=== PATIENT | female | born 1965 | race Two or more races ===

== ENCOUNTER 2023-04-23 10:33 | Emergency (ER) | payer MEDICAID, OTHER ==
[~2023-04-23] VITALS: Ht 170.2 cm; Wt 123.5 kg
[2023-04-23 11:12] VITALS: BP 109/75; PULSE 78; RESP 16; TEMP 96.6; O2SAT 96
[2023-04-23] MEDS ORDERED: IBUP-1456 PO (11:42)
== END 2023-04-23 11:54 | disposition home or self-care (01) ==
LOC: ER 10:33
DX: S82.54XA Nondisplaced fracture of medial malleolus of right tibia, initial encounter for closed fracture (principal); Z79.1 Long term (current) use of non-steroidal anti-inflammatories (NSAID); W18.39XA Other fall on same level, initial encounter; Y93.89 Activity, other specified; Y92.098 Other place in other non-institutional residence as the place of occurrence of the external cause; Y99.8 Other external cause status
CPT/HCPCS: 29515; 73610

== ENCOUNTER 2025-06-07 11:25 | Inpatient (IN) | payer MEDICAID ==
[~2025-06-07] VITALS: Ht 170.2 cm; Wt 121.6 kg
[~2025-06-07 11:25] MED LIST: IBUP-1456 PO
--- NOTE | 2025-06-07 11:52 | ECG ---
[facility] Test Date: 2025-06-07 Test Time: 11:47:47 Pat Name: EKTA GILMORE Department: ED Room: 0273T Gender: F [employer] C[employer]: GP : 1965 Requested By: ANTWON BENTON Order Number: [id number] Reading MD: Demetris Casas Measurements Intervals [place] Rate: 108 P: 55 PA: 150 QRS: -26 QRSD: 89 T: 10 QT: 349 QTc: 468 Interpretive Statements Sinus tachycardia Borderline left axis deviation Consider anterior infarct Baseline wander in lead(s) II,III,aVL,aVF,V3 Electronically Signed On 06-10-2025 17:51:41 PST by Demetris Casas Please click the below link to view image of tracing.
[2025-06-07] MEDS: SODIUM CHLORIDE 0.9% 500 ML IV ONE (12:22)
[2025-06-07 12:30] VITALS: PULSE 106; RESP 31; O2SAT 96
[2025-06-07] MEDS: CEFEPIME 2GM/50ML NS 50 ML IV ONE (12:35)
[2025-06-07] MEDS: SODIUM CHLORIDE 0.9% 1,000 ML IV ONE (12:35)
[2025-06-07 12:49] LABS: Hematocrit 39.2 % (36.0-46.0); Hemoglobin 13.4 g/dL (12.2-16.2); Mean Corpuscular Hemoglobin 28.5 pg (28.0-32.0); Mean Corpuscular Volume 83.4 fL (80.0-100.0); Nucleated Red Blood Cells % 0.1 %
--- NOTE | 2025-06-07 13:10 | DVH ---
CLINICAL INDICATION: LEFT ANKLE WOUND TECHNIQUE: 3 radiographic views of the left tibia and fibula. were obtained. Comparison: None FINDINGS/IMPRESSION: No fractures or dislocations. If osteomyelitis is of clinical concern consider MRI.
[2025-06-07 13:15] LABS: Lactic Acid w/Reflex 2.9 mmol/L (0.4-2.0)
[2025-06-07] MEDS: VANCOMYCIN 1GM/250ML KIT 250 ML IV ONE (13:23)
[2025-06-07 13:31] LABS: Albumin 3.7 g/dL (3.2-4.8); Alkaline Phosphatase 89 U/L (46-116); Anion Gap 15 (5-15); BUN/Creatinine Ratio 3.6 (10.0-20.0); Blood Urea Nitrogen 14 mg/dL (9-23); Calcium 9.5 mg/dL (8.7-10.4); Carbon Dioxide 21 mmol/L (20-31); Chloride 99 mmol/L (98-107); Potassium 4.1 mmol/L (3.5-5.1); Total Protein 7.2 g/dL (5.7-8.2)
[2025-06-07 13:32] LABS: Bilirubin, Total 0.4 mg/dL (0.2-1.0)
[2025-06-07 13:34] LABS: Alanine Aminotransferase 50 U/L (7-40); Glucose 157 mg/dL (74-106); Sodium 135 mmol/L (136-145)
--- NOTE | 2025-06-07 14:19 | ED.PDOC ---
History of Present Illness HPI Comments 60-year-old female presents to the ER with a prior medical history of diabetes and a chief complaint of nausea and vomiting. Patient reports having had nausea and vomiting, yellow emesis, dizziness, and a syncopal episode this morning. Patient does have a 2 x 1 cm diabetic wound to the left ankle. Denies any other symptoms at this time. Denies chills, fever, /D, SOB, CP. No other associated symptoms, modifiers, recent injuries or sick contacts present at this time. Chief Complaint: Nausea/Vomiting Time Seen by MD: 13:30 Primary Care Provider: MONTY Reviewed Notes: Nurses Notes, Medications, Allergies Allergies: Coded Allergies: NO KNOWN ALLERGIES (Unverified , 04/23/23) Home Meds Active Scripts Ibuprofen (Ibuprofen) 800 Mg Tab, 1 TAB PO TID, #30 TAB Prov:NEVA MONTERO 04/23/23 Information Source: Patient Mode of Arrival: Ambulatory Severity: Moderate Timing: Hours Duration: Since onset, Hours Prehospital treatment: None Past Medical History PAST MEDICAL HISTORY: DM Surgical History: Denies all surgeries WEED SPRAYER History: Denies all WEED SPRAYER Hx Family History Family History: Reviewed,noncontributory to illness, Unknown Social History Smoker: Non-Smoker Alcohol: Denies ETOH Use Drugs: Denies Drug Use Lives In: Home Constitutional: denies: chills, diaphoresis, fatigue, fever, malaise, sweats, weakness, others EENTM: denies: blurred vision, double vision, ear bleeding, ear discharge, ear drainage, ear pain, ear ringing, eye pain, eye redness, hearing loss, mouth pain, mouth swelling, nasal discharge, nose bleeding, nose congestion, nose pain, photophobia, tearing, throat pain, throat swelling, voice changes, others Respiratory: denies: cough, hemoptysis, orthopnea, SOB at rest, shortness of breath, SOB with excertion, stridor, wheezing, others Cardiovascular: denies: chest pain, dizzy spells, diaphoresis, Dyspnea on exertion, edema, irregular heart beat, left arm pain, lightheadedness, pal pitations, PND, syncope, others Gastrointestinal: reports: nausea, vomiting; denies: abdomen distended, abdominal pain, blood streaked bowels, constipated, diarrhea, dysphagia, difficulty swallowing, hematemesis, melena, poor appetite, poor fluid intake, rectal bleeding, rectal pain, others Genitourinary: denies: abnormal vagina bleeding, burning, dyspareunia, dysuria, flank pain, frequency, hematuria, incontinence, pain, , vagina discharge, urgency, others Neurological: reports: dizziness; denies: fainting, headache, left sided numbness, left sided weakness, numbness, paresthesia, pre-existing deficit, right sided numbness, right sided weakness, seizure, speech problems, tingling, tremors, weakness, others Musculoskeletal: denies: back pain, gout, joint pain, joint swelling, muscle pain, muscle stiffness, neck pain, others Integumetry: denies: bruises, change in color, change in hair/nails, dryness, laceration, lesions, lumps, rash, wounds, others Allergic/Immunocompromised: denies: Difficulty Healing, Frequent Infections, Hives, Itching, others Hematologic/Lymphatic: denies: anemia, blood clots, easy bleeding, easy bruising, swollen glands, others Endocrine: denies: excessive hunger, excessive sweating, excessive thirst, excessive urination, flushing, intolerance to cold, intolerance to heat, unexplained weight gain, unexplained weight loss, others Psychiatric: denies: anxiety, bipolar disorder, depression, hopeless, panic disorder, schizophrenia, sleepless, suicidal, others All Other Systems: Reviewed and Negative Physical Exam Exam Comments 2 x 1 cm diabetic wound to the left inguinal General Appearance: No Apparent Distress, Normal HEENT: Normal ENT Inspection, Pharynx Normal, TMs Normal Neck: Full Range of Motion, Non-Tender, Normal, Normal Inspection Respiratory: Chest Non-Tender, Lungs Clear, No Accessory Muscle Use, No Respiratory Distress, Normal Breath Sounds Cardiovascular: No Edema, No JVD, No Murmur, No Gallop, Normal Peripheral Pulses, Regular Rate/Rhythm Breast Exam: Deferred Gastrointestinal: No Organomegaly, Non Tender, No Pulsatile Mass, Normal Bowel Sounds, Soft Genitalia: Deferred Pelvic: Deferred Rectal: Deferred Extremities: No calf tenderness, Normal capillary refill, Normal inspection, Normal range of motion, Non-tender, No pedal edema Musculoskeletal : Apperance: Normal Neurologic: Alert, casework manager II-XII nml as Tested, No Motor Deficits, Normal Affect, Normal Mood, No Sensory Deficits Cerebellar Function: Normal Reflexes: Normal Skin: Dry, Normal Color, Warm Lymphatic: No Adenopathy Was a procedure done? Was a procedure done?: No EKG EKG : Pulse Rate (adult): 108 [place]: Normal Cardiac Rhythm: ST Block: None Hypertrophy: None ST: Normal Differential Dx Considerations may include: see mdm X-Ray, Labs, Meds, VS Vital Signs Date Time Temp Pulse Resp B/P (MAP) Pulse Ox O2 Delivery O2 Flow Rate FiO2 06/07/25 14:19 108 06/07/25 12:30 106 31 96 Nasal Cannula* 2 28 06/07/25 12:30 97.3 106 31 97/50 (66) 96 97.3 06/07/25 11:47 108 06/07/25 11:32 98.1 125 26 72/46 100 98.1 Lab Test 06/07/25 16:04 06/07/25 15:12 06/07/25 14:11 06/07/25 13:21 Range/Units Urine Color Yellow Yellow Urine Clarity Turbid H Clear Urine pH 5.0 5.0-9.0 Urine Specific [place] 1.015 1.001-1.035 Urine Protein Trace H Negative Urine Ketones Negative Negative Urine Blood 1+ H Negative /uL Urine Nitrite Negative Negative Urine Bilirubin Negative Negative Urine Urobilinogen Normal Negative mg/dL Urine Leukocyte Esterase 3+ Negative /uL Urine RBC 8 0 - 4 /hpf Urine Microscopic WBC 14 H 0-5 /HPF Urine Squamous Epithelial Cells Few <5 /hpf Urine Bacteria Few H None Seen /hpf Urine Mucus Few None Seen Urine Yeast (Budding) Occasional None Seen /hpf Urine Glucose 4+ H Normal mg/dL Troponin I High Sensitivity 4 < 3 L </=34 ng/L Lactic Acid Level 2.6 *H 0.4-2.0 mmol/L Test 06/07/25 12:10 Range/Units White Blood Count 8.6 4.4-10.8 10^3/uL Red Blood Count 4.70 4.0-5.20 10^6/uL Hemoglobin 13.4 12.2-16.2 g/dL Hematocrit 39.2 36.0-46.0 % Mean Corpuscular Volume 83.4 80.0-100.0 fL Mean Corpuscular Hemoglobin 28.5 28.0-32.0 pg Mean Corpuscular Hemoglobin Concent 34.2 32.0-36.0 g/dL Red Cell Distribution Width 14.2 11.8-14.3 % Platelet Count 427 140-450 10^3/uL Mean Platelet Volume 6.4 L 6.9-10.8 fL Neutrophils (%) (Auto) 65.1 37.0-80.0 % Lymphocytes (%) (Auto) 25.4 10.0-50.0 % Monocytes (%) (Auto) 7.4 0.0-12.0 % Eosinophils (%) (Auto) 1.8 0.0-7.0 % Basophils (%) (Auto) 0.3 0.0-2.0 % Neutrophils # (Auto) 5.6 1.6-8.6 10 ^3/uL Lymphocytes # (Auto) 2.2 0.4-5.4 10 ^3/uL Monocytes # (Auto) 0.6 0-1.3 10 ^3/uL Eosinophils # (Auto) 0.2 0-0.8 10 ^3/uL Basophils # (Auto) 0 0-0.2 10 ^3/uL Nucleated Red Blood Cells 0.1 % Sodium Level 135 L 136-145 mmol/L Potassium Level 4.1 3.5-5.1 mmol/L Chloride Level 99 98-107 mmol/L Carbon Dioxide Level 21 20-31 mmol/L Anion Gap 15 5-15 Blood Urea Nitrogen 14 9-23 mg/dL Creatinine 3.91 H 0.550-1.02 mg/dL Glomerular Filtration Rate Calc 13 >90 mL/min BUN/Creatinine Ratio 3.6 L 10.0-20.0 Serum Glucose 157 H 74-106 mg/dL Lactic Acid Level 2.9 *H 0.4-2.0 mmol/L Calcium Level 9.5 8.7-10.4 mg/dL Total Bilirubin 0.4 0.2-1.0 mg/dL Aspartate Amino Transferase (AST) 41 H 13-40 U/L Alanine Aminotransferase (ALT) 50 H 7-40 U/L Alkaline Phosphatase 89 46-116 U/L Troponin I High Sensitivity 4 </=34 ng/L Total Protein 7.2 5.7-8.2 g/dL Albumin 3.7 3.2-4.8 g/dL Current Medications Medications (Trade) Dose Ordered Sig/Ginger Route Start Time Stop Time Status Last Admin Sodium Chloride 500 ml @ 500 mls/hr Q1H ONCE IV 06/07/25 11:45 06/07/25 12:44 DC 06/07/25 12:22 Sodium Chloride 1,000 ml @ 1,000 mls/hr Q1H ONCE IV 06/07/25 12:30 06/07/25 13:29 DC 06/07/25 12:35 Cefepime HCl 50 ml @ 50 mls/hr ONCE ONCE IV 06/07/25 12:30 06/07/25 13:29 DC 06/07/25 12:35 Vancomycin HCl 250 ml @ 250 mls/hr ONCE ONCE IV 06/07/25 12:30 06/07/25 13:29 DC 06/07/25 13:23 Sodium Chloride 2,000 ml @ 1,000 mls/hr Q2H ONCE IV 06/07/25 16:15 06/07/25 18:14 06/07/25 16:00 Time of 1ST Reevaluation: 14:00 Reevaluation 1ST: Unchanged Patient Education/Counseling: Diagnosis, Treatment, Prognosis Family Education/Counseling: No Family Present Additional Information MEDICAL DECISION MAKING (HIGH COMPLEXITY [id number]): The patient is a 60-year-old female with a history of type 2 diabetes who presents with weakness, nausea, and vomiting. On arrival, she was hypotensive and tachycardic, raising immediate concern for sepsis and possible septic shock. She also has a left leg ulcer with surrounding erythema, drainage, and signs of infection, suspected to be the source of her sepsis. Data Reviewed / Independent Interpretation: All diagnostic studies obtained during her ED course were independently reviewed and interpreted by me: CBC: benign without leukocytosis, though normal white count does not exclude sepsis, especially in diabetic and immunocompromised patients. BMP: notable for creatinine 3.91, representing significant acute kidney injury, worsening severity of illness and increasing risk of medication accumulation and metabolic instability. Lactic acid: 2.9, consistent with lactate elevation in the setting of hypoperfusion and septic shock. Vital signs: persistent hypotension and tachycardia, requiring aggressive fluid resuscitation and close monitoring. No other acute metabolic derangements identified. Given her diabetic status and infected leg ulcer, she is at high risk for progression to worsening shock, organ dysfunction, or necrotizing soft-tissue infection. Assessment, Differential & Management: Differential diagnosis includes: Sepsis / septic shock, likely secondary to infected leg ulcer Cellulitis versus deep soft-tissue infection Acute kidney injury from sepsis/hypoperfusion Diabetic skin/soft-tissue infection Gastroenteritis or metabolic derangement contributing to N/V Occult bacteremia The patient met septic shock criteria with hypotension, elevated lactate, and end-organ dysfunction (renal injury). Management in the ED included: Aggressive IV fluid resuscitation, resulting in improved hemodynamics Broad-spectrum IV antibiotics initiated promptly Frequent reassessment of perfusion, mental status, and urine output Monitoring for need for vasopressors (not required after fluid response) Evaluation of the left leg ulcer as the most likely infectious source Consideration of necrotizing infection (low suspicion based on exam but monitored closely) Given her severity of illness, she requires inpatient admission for continued management of septic shock, IV antibiotics, serial lactate trending, close hemodynamic monitoring, and wound care evaluation. Risk / Disposition: This patient presents with a life-threatening illness involving hypotension, elevated lactate, [place], infection, and systemic inflammatory response. She requires hospital admission for continued sepsis management and potential surgical/wound evaluation. The decision to admit, high data review, and significant risk of morbidity all meet Level 5 medical decision-making criteria. CRITICAL CARE TIME 128 MINUTES A total of 128 minutes of critical care time was provided, exclusive of separately billable procedures. Critical care was medically necessary due to the immediate risk of cardiovascular collapse, multi-organ failure, and from septic shock secondary to an infected leg ulcer. Critical care activities included: Continuous monitoring of hemodynamics and perfusion Aggressive IV fluid resuscitation Initiation and oversight of broad-spectrum IV antibiotics Serial examinations of the ulcer to assess for progression or necrotizing infection Interpretation of labs including CBC, BMP, and lactate levels Frequent reassessment of mental status and vital signs Evaluation and management of acute kidney injury Coordination with nursing, admitting team, and potential wound/surgical consultants High-intensity medical decision making throughout prolonged bedside management The patient required sustained, focused critical care due to her unstable clinical state and high risk of deterioration. SEPSIS Sepsis Screen Date sepsis recognized/suspect: Jun 07, 2025 Time Sepsis recognized/suspect: 1230 Recent Procedure: No On Antibiotic Therapy: No Respiratory Rate >20: Yes Heart Rate >90: Yes Temp<36 C (96.8 F) or >38.3 C: No SBP <90 or MAP <65 mmHG: No New Acute Mental Status Change: No Is the patient on CPAP, BIPAP,: No Physician Orders Blood Culture (06/07/25 11:49) Electrocardigram (06/07/25 12:49) Electrocardigram (06/07/25 14:49) L Tib Fib Xray (06/07/25 12:31) Sodium Chloride 0.9% (06/07/25 16:15) Vital Signs Date Time Temp Pulse Resp B/P (MAP) Pulse Ox O2 Delivery O2 Flow Rate FiO2 06/07/25 14:19 108 06/07/25 12:30 106 31 96 Nasal Cannula* 2 28 06/07/25 12:30 97.3 106 31 97/50 (66) 96 97.3 06/07/25 11:47 108 06/07/25 11:32 98.1 125 26 72/46 100 98.1 Laboratory Tests Test 06/07/25 12:10 06/07/25 14:11 Lactic Acid Level 2.9 mmol/L (0.4-2.0) *H 2.6 mmol/L (0.4-2.0) *H White Blood Count 8.6 10^3/uL (4.4-10.8) Medications Medications Dose Ordered Sig/Ginger Route Start Time Stop Time Status Last Admin Dose Admin Cefepime HCl 50 ml @ 50 mls/hr ONCE ONCE IV 06/07/25 12:30 06/07/25 13:29 DC 06/07/25 12:35 Sodium Chloride 500 ml @ 500 mls/hr Q1H ONCE IV 06/07/25 11:45 06/07/25 12:44 DC 06/07/25 12:22 Sodium Chloride 1,000 ml @ 1,000 mls/hr Q1H ONCE IV 06/07/25 12:30 06/07/25 13:29 DC 06/07/25 12:35 Sodium Chloride 2,000 ml @ 1,000 mls/hr Q2H ONCE IV 06/07/25 16:15 06/07/25 18:14 06/07/25 16:00 Vancomycin HCl 250 ml @ 250 mls/hr ONCE ONCE IV 06/07/25 12:30 06/07/25 13:29 DC 06/07/25 13:23 Departure 1 Departure Time of Disposition: 16:20 Impression: Primary Impression: Septic shock Additional Impression: Cellulitis Disposition: 09 ADMITTED INPATIENT Admit to: [facility] Condition: Guarded Critical Care Note Critical Care Time?: Yes Stability Stability form required: No I personally scribed for ANTWON BENTON MD ([email or web address]) on 06/07/25 at 14:19. Electronically submitted by Indra Ramos (ANCERA). I personally scribed for ANTWON BENTON MD ([email or web address]) on 06/07/25 at 14:19. Electronically submitted by Indra Ramos (ANCERA). ANTWON BENTON MD Jun 07, 2025 14:19
[2025-06-07] MEDS: SODIUM CHLORIDE 0.9% 2,000 ML IV ONE (16:00)
[2025-06-07 16:16] LABS: Urine Budding Yeast OCCASIONAL /hpf (None Seen); Urine Protein, UAD TRACE (Negative)
[2025-06-07] MEDS ORDERED: HYDROcodone-ACET 5/325MG TAB PO PRN (18:45)
[2025-06-07] MEDS ORDERED: DEXTROSE (50%) 50ML SYRG IV PRN (18:45)
[2025-06-07] MEDS ORDERED: DOCUSATE SOD 100 MG CAP PO PRN (18:45)
[2025-06-07] MEDS ORDERED: VANCOMYCIN PER PHARMACY 0 MG IV SCH (18:45)
[2025-06-07] MEDS: SODIUM CHLORIDE 0.9% 1,000 ML IV SCH (19:00)
[2025-06-07] MEDS: MIDODRINE HCL 10 MG TAB PO ONE (19:00)
--- NOTE | 2025-06-07 21:24 | DVHHP2 ---
History of Present Illness Reason for Visit: Hypotension History of Present Illness The patient is a 60-year-old female with past medical history of diabetes mellitus, hyperlipidemia, and hypertension who presented to [facility] ED with complaint of dizziness. Patient reports that she has been experiencing dizziness associated with nausea, vomiting, near syncopal episode this morning, shortness of breaths, getting worse that prompted this visit. Patient does have a 2 x 1 cm diabetic wound to the left ankle. Patient was seen and evaluated in the ED, laboratory data shows WBC 8.6, platelets 427, sodium 135, potassium 4.1, BUN 14, creatinine 3.91, GFR 13, glucose 157, blood pressure 72/46 trending up to 119/63, heart rate 96, temperature 97.6 F, O2 saturation 94% on oxygen. Left tibia/fibula x-ray showed no fracture or dislocations, if osteomyelitis is of clinical concern consider MRI. Patient was started on IV antibiotic regimen vancomycin, please see medication orders section in the computer. On my assessment, patient denied chest pain, no headache, dizziness, currently on oxygen, no diarrhea, nausea, vomiting, fever, no chills. Patient was admitted for further evaluation and medical management. Past Medical History DM, HLD, HTN Past Surgical History Denies all surgeries Family History Reviewed, noncontributory to the management of this case. Past Social History The patient lives at home, denies smoking, alcohol or illicit drugs abuse. Review of Systems Constitutional: No: Fever, Chills, Sweats, Weakness, Malaise, Other Eyes: No: Pain, Vision change, Conjunctivae inflammation, Eyelid inflammation, Other, Redness ENT: No: Ear pain, Ear discharge, Nose pain, Nose discharge, Nose congestion, Mouth pain, Mouth swelling, Throat pain, Throat swelling, Other Respiratory: No: Cough, Dry, Shortness of breath, SOB with excertion, Wheezing, Hemoptysis, Pleuritic Pain, Sputum, Wheezing, Other Cardiovascular: No: Chest Pain, Palpitations, Orthopnea, Paroxysmal Noc. Dyspnea, Edema, Lt Headedness, Other Gastrointestinal: Nausea, Vomiting; No: Abdominal Pain, Diarrhea, Constipation, Melena, Hematochezia, Other Genitourinary: No Dysuria, No Frequency, No Incontinence, No Hematuria, No Retention, No Other Musculoskeletal: No: other, neck pain, shoulder pain, arm pain, back pain, hand pain, leg pain, foot pain Skin: No: Rash, Lesions, Jaundice, Bruising, Other Neurological: Other (Dizziness); No: Weakness, Numbness, Incoordination, Change in speech, Confusion, Seizures Allergies: Coded Allergies: NO KNOWN ALLERGIES (Unverified , 04/23/23) Medications Current Medications Medications Dose Ordered Sig/Ginger Route Start Time Stop Time Status Last Admin Dose Admin Ceftriaxone Sodium 50 ml @ 100 mls/hr DAILY@09 IV 06/08/25 09:00 Vancomycin HCl 0 ml @ 0 mls/hr PER PHARMACY IV 06/07/25 18:45 UNV Diagnostic Test (Pha) 1 strip Q6HR 06/08/25 00:00 Insulin Human Regular Q6HR SC 06/08/25 00:00 Dextrose 50 ml UD PRN IV 06/07/25 18:45 Sodium Chloride 1,000 ml @ 60 mls/hr [id number] IV 06/07/25 18:45 06/07/25 19:00 60 MLS/HR Acetaminophen/ Hydrocodone Bitart 1 tab Q4HP PRN PO 06/07/25 18:45 Ondansetron HCl 4 mg Q4HP PRN IV 06/07/25 18:45 Docusate Sodium 100 mg BIDPRN PRN PO 06/07/25 18:45 Acetaminophen 650 mg Q6HP PRN PO 06/07/25 18:45 Midodrine 10 mg TID@0600,1200,1800 PO 06/08/25 06:00 Exam Vital Signs Vital Signs Date Time Temp Pulse Resp B/P (MAP) Pulse Ox O2 Delivery O2 Flow Rate FiO2 06/07/25 19:30 98.8 104 22 108/59 (75) 95 98.8 06/07/25 19:30 Room Air* 0 21 General Appearance: Alert, Oriented X3, Cooperative, No acute distress HEENT: Atraumatic, PERRLA, EOMI, Mucous membr. moist/pink Respiratory: Normal air movement Cardiovascular: Regular rate, Normal S1, Normal S2, No murmurs Abdominal: Normal bowel sounds, Soft, No tenderness, No hepatospenomegaly, No masses Extremities: No clubbing, No cyanosis, No edema, Normal pulses, No tenderness/swelling Skin: No rashes, No significant lesion Neuro: Normal speech, Normal tone, Sensation intact, Cranial nerves 3-12 NL, Reflexes 2+, Other (Generalized weakness) Psych/Mental Status: Mental status NL, Mood NL Labs/Xrays Labs Test 06/07/25 16:04 06/07/25 15:12 06/07/25 14:11 06/07/25 12:10 Range/Units Urine Color Yellow Yellow Urine Clarity Turbid H Clear Urine pH 5.0 5.0-9.0 Urine Specific [place] 1.015 1.001-1.035 Urine Protein Trace H Negative Urine Ketones Negative Negative Urine Blood 1+ H Negative /uL Urine Nitrite Negative Negative Urine Bilirubin Negative Negative Urine Urobilinogen Normal Negative mg/dL Urine Leukocyte Esterase 3+ Negative /uL Urine RBC 8 0 - 4 /hpf Urine Microscopic WBC 14 H 0-5 /HPF Urine Squamous Epithelial Cells Few <5 /hpf Urine Bacteria Few H None Seen /hpf Urine Mucus Few None Seen Urine Yeast (Budding) Occasional None Seen /hpf Urine Glucose 4+ H Normal mg/dL Troponin I High Sensitivity 4 </=34 ng/L Lactic Acid Level 2.6 *H 0.4-2.0 mmol/L White Blood Count 8.6 4.4-10.8 10^3/uL Red Blood Count 4.70 4.0-5.20 10^6/uL Hemoglobin 13.4 12.2-16.2 g/dL Hematocrit 39.2 36.0-46.0 % Mean Corpuscular Volume 83.4 80.0-100.0 fL Mean Corpuscular Hemoglobin 28.5 28.0-32.0 pg Mean Corpuscular Hemoglobin Concent 34.2 32.0-36.0 g/dL Red Cell Distribution Width 14.2 11.8-14.3 % Platelet Count 427 140-450 10^3/uL Mean Platelet Volume 6.4 L 6.9-10.8 fL Neutrophils (%) (Auto) 65.1 37.0-80.0 % Lymphocytes (%) (Auto) 25.4 10.0-50.0 % Monocytes (%) (Auto) 7.4 0.0-12.0 % Eosinophils (%) (Auto) 1.8 0.0-7.0 % Basophils (%) (Auto) 0.3 0.0-2.0 % Neutrophils # (Auto) 5.6 1.6-8.6 10 ^3/uL Lymphocytes # (Auto) 2.2 0.4-5.4 10 ^3/uL Monocytes # (Auto) 0.6 0-1.3 10 ^3/uL Eosinophils # (Auto) 0.2 0-0.8 10 ^3/uL Basophils # (Auto) 0 0-0.2 10 ^3/uL Nucleated Red Blood Cells 0.1 % Sodium Level 135 L 136-145 mmol/L Potassium Level 4.1 3.5-5.1 mmol/L Chloride Level 99 98-107 mmol/L Carbon Dioxide Level 21 20-31 mmol/L Anion Gap 15 5-15 Blood Urea Nitrogen 14 9-23 mg/dL Creatinine 3.91 H 0.550-1.02 mg/dL Glomerular Filtration Rate Calc 13 >90 mL/min BUN/Creatinine Ratio 3.6 L 10.0-20.0 Serum Glucose 157 H 74-106 mg/dL Calcium Level 9.5 8.7-10.4 mg/dL Total Bilirubin 0.4 0.2-1.0 mg/dL Aspartate Amino Transferase (AST) 41 H 13-40 U/L Alanine Aminotransferase (ALT) 50 H 7-40 U/L Alkaline Phosphatase 89 46-116 U/L Total Protein 7.2 5.7-8.2 g/dL Albumin 3.7 3.2-4.8 g/dL PATIENT: EKTA GILMORE ACCT: [id number] UNIT: [id number] : 1965 LOC: ER ROOM / BED: / AGE / SEX: 60 / F ADM STATUS: REG ER SERVICE 1231 ORDERING PHYSICIAN: ANTWON BENTON MD PROCEDURE(s): LTBFB - L TIB FIB XRAY REASON: LEFT ANKLE WOUND ORDER NUMBER(s): [id number], ACCESSION NUMBER(s): [id number] CLINICAL INDICATION: LEFT ANKLE WOUND TECHNIQUE: 3 radiographic views of the left tibia and fibula. were obtained. Comparison: None FINDINGS/IMPRESSION: No fractures or dislocations. If osteomyelitis is of clinical concern consider MRI. SEPSIS Sepsis Screen Date sepsis recognized/suspect: Jun 07, 2025 Time Sepsis recognized/suspect: 1929 Recent Procedure: No On Antibiotic Therapy: Yes Respiratory Rate >20: No Heart Rate >90: No Temp<36 C (96.8 F) or >38.3 C: No SBP <90 or MAP <65 mmHG: No New Acute Mental Status Change: No Is the patient on CPAP, BIPAP,: No Physician Orders Ceftriaxone 1gm/50ml (Rocephin) (06/08/25 09:00) Vancomycin Per Pharmacy (06/07/25 18:45) *[facility] (06/07/25 18:35) Glucose Blood (Accu-Chek Comfort Curve T (06/08/25 00:00) Insulin R (Human) (Insulin R) (06/08/25 00:00) Dextrose 50% Syringe (06/07/25 18:45) Allergies (06/07/25 18:35) Code Status (06/07/25 18:35) Sodium Chloride 0.9% (06/07/25 18:45) Oxygen Per Hour (06/07/25 18:35) Hydrocodone-Acet 5/325mg Tab (Boley 5/32 (06/07/25 18:45) Ondansetron Hcl (Zofran) (06/07/25 18:45) Docusate Sodium Capsule (Colace Capsule) (06/07/25 18:45) Complete Blood Count (06/08/25 04:00) Comprehensive Metabolic Panel (06/08/25 04:00) Condition: Serious (06/07/25 18:35) Acetaminophen Tablet (Tylenol Tablet) (06/07/25 18:45) Clear Liq Diet (06/08/25 Breakfast) Bedrest With Bathroom Privileg (06/07/25 18:35) Maintain Bed Rest (06/07/25 18:35) Sequential Compression Device (06/07/25 ) Midodrine Tablet (Proamatine Tablet) (06/08/25 06:00) Urine Bacterial Culture (06/07/25 18:40) Vancomycin,Random (06/08/25 04:00) Admit (06/07/25 21:22) Nitroglycerin Sublingual (Ntrostat Subli (06/07/25 21:30) Morphine Sulfate Injection (06/07/25 21:30) Stat Ekg For Chest Pain (06/07/25 21:22) Notify Md Of Changes From Base (06/07/25 21:22) Director Of Labor And Delivery For 24 Hours (06/07/25 21:22) Emergency Dysrhythmia Protocol (06/07/25 21:22) Rhythm Strips Once Every Shift (06/07/25 21:22) Oxygen By Nasal Cannula (06/07/25 21:22) Vital Signs Date Time Temp Pulse Resp B/P (MAP) Pulse Ox O2 Delivery O2 Flow Rate FiO2 06/07/25 19:30 98.8 104 22 108/59 (75) 95 98.8 06/07/25 19:30 Room Air* 0 21 06/07/25 18:00 98.0 98 20 110/57 (74) 94 98.0 06/07/25 16:00 97.5 113 20 97/48 (64) 94 97.5 06/07/25 14:19 108 06/07/25 14:00 97.4 96 30 100/61 (74) 91 97.4 Laboratory Tests Test 06/07/25 12:10 06/07/25 14:11 Lactic Acid Level 2.9 mmol/L (0.4-2.0) *H 2.6 mmol/L (0.4-2.0) *H White Blood Count 8.6 10^3/uL (4.4-10.8) Medications Medications Dose Ordered Sig/Ginger Route Start Time Stop Time Status Last Admin Dose Admin Cefepime HCl 50 ml @ 50 mls/hr ONCE ONCE IV 06/07/25 12:30 06/07/25 13:29 DC 06/07/25 12:35 50 MLS/HR Midodrine 10 mg ONCE ONCE PO 06/07/25 18:45 06/07/25 18:54 DC 06/07/25 19:00 10 MG Sodium Chloride 500 ml @ 500 mls/hr Q1H ONCE IV 06/07/25 11:45 06/07/25 12:44 DC 06/07/25 12:22 500 MLS/HR Sodium Chloride 1,000 ml @ 60 mls/hr [id number] IV 06/07/25 18:45 06/07/25 19:00 60 MLS/HR Sodium Chloride 1,000 ml @ 1,000 mls/hr Q1H ONCE IV 06/07/25 12:30 06/07/25 13:29 DC 06/07/25 12:35 1,000 MLS/HR Sodium Chloride 2,000 ml @ 1,000 mls/hr Q2H ONCE IV 06/07/25 16:15 06/07/25 18:14 DC 06/07/25 16:00 1,000 MLS/HR Vancomycin HCl 250 ml @ 250 mls/hr ONCE ONCE IV 06/07/25 12:30 06/07/25 13:29 DC 06/07/25 13:23 250 MLS/HR Assessment/Plan Assessment/Plan Hypotension Urinary tract infection Acute renal failure Elevated liver enzymes Intractable nausea and vomiting Diabetes mellitus with hyperglycemia Ulcer of left foot due to type 2 diabetes mellitus Generalized weakness Plan 1. Admit to telemetry unit 2. Breathing treatment 3. Pain control management 4. IV antibiotic management 5. Management of fluids and electrolytes 6. Consultation for Nephrology/wound care 7. Diagnostic test left tibia/fibula x-ray 8. DVT prophylaxis-on aspirin 9. Repeat labs CBC, CMP in a.m. 10. Home medication reviewed and reconciled 11. Continue with current medical management 12. Treatment plan discussed with patient and RN. Patient verbalized understanding. Plan discussed with: Patient, Other (RN) My Orders Orders - VAUGHN RIBEIRO DNP Procedure Category Date Status Time Ceftriaxone 1gm/50ml PHA 06/08/25 In Process (Rocephin) 09:00 Vancomycin Per PHA 06/07/25 Pending Pharmacy 18:45 *[facility] CONS 06/07/25 Transmitted -[place] 18:35 Glucose Blood PHA 06/08/25 In Process (Accu-Chek Comfort 00:00 Insulin R (Human) PHA 06/08/25 In Process (Insulin R) 00:00 Dextrose 50% Syringe PHA 06/07/25 In Process 18:45 Allergies FREDERIC 06/07/25 In Process 18:35 Code Status CODE 06/07/25 Transmitted 18:35 Sodium Chloride 0.9% PHA 06/07/25 In Process 18:45 Oxygen Per Hour RT 06/07/25 Transmitted 18:35 Hydrocodone-Acet PHA 06/07/25 In Process 5/325mg Tab (Boley 18:45 Ondansetron Hcl PHA 06/07/25 In Process (Zofran) 18:45 Docusate Sodium PHA 06/07/25 In Process Capsule (Colace 18:45 Complete Blood Count LAB 06/08/25 Verified 04:00 Comprehensive LAB 06/08/25 Verified Metabolic Panel 04:00 Condition: Serious FREDERIC 06/07/25 In Process 18:35 Acetaminophen Tablet PHA 06/07/25 In Process (Tylenol Tablet) 18:45 Clear Liq Diet DIET 06/08/25 Transmitted Breakfast Bedrest With Bathroom [facility] 06/07/25 In Process Privileg 18:35 Maintain Bed Rest [facility] 06/07/25 In Process 18:35 Sequential [facility]ERIC 06/07/25 In Process Compression Device Midodrine Tablet [facility] 06/08/25 In Process (Proamatine Tablet) 06:00 Urine Bacterial BEN 06/07/25 In Process Culture 18:40 Vancomycin,Random LAB 06/08/25 Verified 04:00 Admit ADMIT 06/07/25 Verified 21:22 Nitroglycerin [facility] 06/07/25 Verified Sublingual (Ntrostat 21:30 Morphine Sulfate [facility] 06/07/25 Verified Injection 21:30 Stat Ekg For Chest [facility] 06/07/25 Verified Pain 21:22 Notify Md Of Changes [facility] 06/07/25 Verified From Base 21:22 Director Of Labor And Delivery For [facility] 06/07/25 Verified 24 Hours 21:22 Emergency Dysrhythmia [facility] 06/07/25 Verified Protocol 21:22 Rhythm Strips Once [facility] 06/07/25 Verified Every Shift 21:22 Oxygen By Nasal RT 06/07/25 Verified Cannula 21:22 Problem List: (1) Hypotension (2) Urinary tract infection (3) Acute renal failure (4) Elevated liver enzymes (5) Intractable nausea and vomiting (6) Diabetes mellitus with hyperglycemia (7) Ulcer of left foot due to type 2 diabetes mellitus (8) Generalized weakness Date of Service: Jun 07, 2025 Billing Provider: VAUGHN RIBEIRO DNP Common Visit Codes: [id number] INP/OBS CARE (HIGH) VAUGHN RIBEIRO DNP Jun 07, 2025 21:24
[2025-06-07] MEDS ORDERED: MORPHINE SULFATE INJ 2 MG/ml SYRG IV PRN (21:30)
[2025-06-07] MEDS ORDERED: NITROGLYCERIN 0.4 MG SL TAB SL PRN (21:30)
[2025-06-08] VITALS (8 sets, daily range): BP systolic 95–129; BP diastolic 61–81; PULSE 83–98; RESP 18–20; TEMP 97.6–98.5; O2SAT 93–99
[2025-06-08] MEDS: InsuLIN REG 1unit/0.01ml Soln (100units/ml) SC SCH
[2025-06-08] MEDS: ACCU-CHEK COMFORT CURVE STRIP VI SCH
[2025-06-08] MEDS: ONDANSETRON HCL 4 MG/2 ML VIAL IV PRN (00:29)
[2025-06-08] MEDS ORDERED: METF-929 PO (02:37)
[2025-06-08] MEDS: MIDODRINE HCL 10 MG TAB PO SCH (05:49)
[2025-06-08 06:22] LABS: Hematocrit 33.9 % (36.0-46.0); Hemoglobin 11.6 g/dL (12.2-16.2); Mean Corpuscular Hemoglobin 28.2 pg (28.0-32.0); Mean Corpuscular Volume 82.7 fL (80.0-100.0); Nucleated Red Blood Cells % 0.1 %
[2025-06-08 06:44] LABS: Albumin 3.4 g/dL (3.2-4.8); Alkaline Phosphatase 74 U/L (46-116); Anion Gap 12 (5-15); BUN/Creatinine Ratio 3.1 (10.0-20.0); Calcium 8.8 mg/dL (8.7-10.4); Carbon Dioxide 20 mmol/L (20-31); Chloride 104 mmol/L (98-107); Glucose 103 mg/dL (74-106); Potassium 3.9 mmol/L (3.5-5.1); Sodium 136 mmol/L (136-145); Total Protein 6.6 g/dL (5.7-8.2)
[2025-06-08 06:45] LABS: Bilirubin, Total 0.4 mg/dL (0.2-1.0)
[2025-06-08 06:46] LABS: Alanine Aminotransferase 49 U/L (7-40); Blood Urea Nitrogen 7 mg/dL (9-23)
--- NOTE | 2025-06-08 13:05 | DVHPN2 ---
Subjective Seen in bed with no pain Reviewed: H&P Changes from previous H/P or p: No Changes Eyes: No Pain, No Vision change, No Conjunctivae inflammation, No Eyelid inflammation, No Other, No Redness ENT: No Ear pain, No Ear discharge, No Nose pain, No Nose discharge, No Nose congestion, No Mouth pain, No Mouth swelling, No Throat pain, No Throat swelling, No Other Cardiovascular: No Chest Pain, No Palpitations, No Orthopnea, No Paroxysmal Noc. Dyspnea, No Edema, No Lt Headedness, No Other Respiratory: No Cough, No Dry, No Shortness of breath, No SOB with excertion, No Wheezing, No Hemoptysis, No Pleuritic Pain, No Sputum, No Other Gastrointestinal: Nausea, Vomiting; No Abdominal Pain, No Diarrhea, No Constipation, No Melena, No Hematochezia, No Other Genitourinary: No Dysuria, No Frequency, No Incontinence, No Hematuria, No Retention, No Other Musculoskeletal: No other, No neck pain, No shoulder pain, No arm pain, No back pain, No hand pain, No leg pain, No foot pain Skin: No Rash, No Lesions, No Jaundice, No Bruising, No Other Objective Vitals Vital Signs Date Time Temp Pulse Resp B/P (MAP) Pulse Ox O2 Delivery O2 Flow Rate FiO2 06/08/25 09:00 97.6 87 20 129/81 (97) 93 97.6 06/08/25 08:00 Room Air* 0 21 Intake/Output Intake and Output 06/08/25 07:00 Intake Total 3800 ml Balance 3800 ml IV Total 3800 ml # Voids 4 General Appearance: Alert, Oriented X3 HEENT: Atraumatic Lungs: Clear to auscultation Cardiovascular: Regular rate, Normal S1, Normal S2 Abdomen: Normal bowel sounds Medications Current Medications Medications Dose Ordered Sig/Ginger Route Start Time Stop Time Status Last Admin Dose Admin Ceftriaxone Sodium 50 ml @ 100 mls/hr DAILY@09 IV 06/08/25 09:00 06/08/25 09:32 100 MLS/HR Vancomycin HCl 0 ml @ 0 mls/hr PER PHARMACY IV 06/07/25 18:45 Diagnostic Test (Pha) 1 strip Q6HR 06/08/25 00:00 06/08/25 12:30 1 STRIP Insulin Human Regular Q6HR SC 06/08/25 00:00 06/08/25 12:30 2 UNITS Dextrose 50 ml UD PRN IV 06/07/25 18:45 Sodium Chloride 1,000 ml @ 60 mls/hr [id number] IV 06/07/25 18:45 06/08/25 11:28 60 MLS/HR Acetaminophen/ Hydrocodone Bitart 1 tab Q4HP PRN PO 06/07/25 18:45 Ondansetron HCl 4 mg Q4HP PRN IV 06/07/25 18:45 06/08/25 09:33 4 MG Docusate Sodium 100 mg BIDPRN PRN PO 06/07/25 18:45 Acetaminophen 650 mg Q6HP PRN PO 06/07/25 18:45 Midodrine 10 mg TID@0600,1200,1800 PO 06/08/25 06:00 06/08/25 05:49 10 MG Nitroglycerin 0.4 mg Q5MINP PRN SL 06/07/25 21:30 Morphine Sulfate 2 mg Q30M PRN IV 06/07/25 21:30 Aspirin 81 mg DAILY PO 06/08/25 10:00 06/08/25 09:32 81 MG Laboratory Results Laboratory Tests 06/08/25 04:50 Chemistry Test 06/08/25 04:50 Albumin 3.4 g/dL (3.2-4.8) Calcium Level 8.8 mg/dL (8.7-10.4) Total Protein 6.6 g/dL (5.7-8.2) LFT Test 06/08/25 04:50 Alanine Aminotransferase (ALT) 49 U/L (7-40) H Alkaline Phosphatase 74 U/L (46-116) Aspartate Amino Transferase (AST) 68 U/L (13-40) H Total Bilirubin 0.4 mg/dL (0.2-1.0) Urinalysis Test 06/07/25 16:04 Urine Color Yellow (Yellow) Urine Clarity Turbid (Clear) H Urine pH 5.0 (5.0-9.0) Urine Specific [place] 1.015 (1.001-1.035) Urine Protein Trace (Negative) H Urine Ketones Negative (Negative) Urine Blood 1+ /uL (Negative) H Urine Nitrite Negative (Negative) Urine Bilirubin Negative (Negative) Urine Urobilinogen Normal mg/dL (Negative) Urine Leukocyte Esterase 3+ /uL (Negative) Urine RBC 8 /hpf (0 - 4) Urine Microscopic WBC 14 /HPF (0-5) H Urine Squamous Epithelial Cells Few /hpf (<5) Urine Bacteria Few /hpf (None Seen) H Urine Mucus Few (None Seen) Urine Yeast (Budding) Occasional /hpf (None Urine Glucose 4+ mg/dL (Normal) H Microbiology Microbiology Date/Time Source Procedure Growth Status 06/07/25 16:04 Voided Urine Urine Culture - Preliminary Resulted 06/07/25 12:16 Blood Blood Culture - Preliminary NO GROWTH AFTER 24 HOURS OF INCUBATION. Resulted Assessment/Plan Assessment/Plan Hypotension Urinary tract infection Acute renal failure due to vasomotor nephropathy Elevated liver enzymes Intractable nausea and vomiting Diabetes mellitus with hyperglycemia Ulcer of left foot due to type 2 diabetes mellitus Generalized weakness IVF Monitor BMP daily IV abx Monitor blood cx Creatinine 3.9>2.4 Plan discussed with: Patient Date of Service: Jun 08, 2025 Billing Provider: LUCHO SEALS MD Common Visit Codes: [id number] INP/OBS CARE(HIGH) LUCHO SEALS MD Jun 08, 2025 13:05
[2025-06-08] MEDS: VANCOMYCIN 1GM/250ML KIT 250 ML IV ONE (14:04)
--- NOTE | 2025-06-08 19:50 | DVHINCON2 ---
Date of service: Jun 08, 2025 Reason for Consultation fidel History of Present Illness 60 years old female with past medical history of diabetes, dyslipidemia, hypertension who presented with chief complaints of dizziness associated with nausea vomiting and near syncope she denies having Chronic kidney disease she also is morbidly obese On arrival her blood pressure is found to be 72 / 46 Past Medical History As per HPI Past Surgical History As per HPI Allergies: Coded Allergies: NO KNOWN ALLERGIES (Unverified , 04/23/23) Home Meds Reported Medications Metformin HCl (Metformin Hydrochloride) 1,000 Mg Tab, 1000 MG PO BID, TAB 06/08/25 Current Medications Current Medications Medications (Trade) Dose Ordered Sig/Ginger Route PRN Reason Start Time Stop Time Status Last Admin Ceftriaxone Sodium 50 ml @ 100 mls/hr DAILY@09 IV 06/08/25 09:00 06/08/25 09:32 Diagnostic Test (Pha) (Accu-Chek Comfort Curve T) 1 strip Q6HR 06/08/25 00:00 06/08/25 17:10 Insulin Human Regular (InsuLIN R) Q6HR SC 06/08/25 00:00 06/08/25 12:30 Midodrine (Proamatine Tablet) 10 mg TID@0600,1200,1800 PO 06/08/25 06:00 06/08/25 05:49 Nitroglycerin (Ntrostat Sublingual) 0.4 mg Q5MINP PRN SL FOR CHEST PAIN 06/07/25 21:30 Morphine Sulfate 2 mg Q30M PRN IV FOR CHEST PAIN 06/07/25 21:30 Aspirin 81 mg DAILY PO 06/08/25 10:00 06/08/25 09:32 Family History: Patient reports no known family medical history. Review of Systems As per HPI H&P Exam Vital Signs/I&O Vital Sign Date Time Temp Pulse Resp B/P (MAP) Pulse Ox O2 Delivery O2 Flow Rate FiO2 06/08/25 17:00 98.3 89 20 126/76 (93) 99 98.3 06/08/25 08:00 Room Air* 0 21 Intake and Output 06/07/25 06/08/25 19:00 07:00 Intake Total 3800 ml Balance 3800 ml IV Total 3800 ml # Voids 4 Physical Exam General-not in any distress HEENT-normocephalic, no icterus, no pallor, neck supple Respiratory-fair air entry bilateral, no rhonchi, no wheeze [id number] heard, no murmurs appreciated Abdominal-soft, nontender, nondistended Musculoskeletal-no pedal edema, no calf tenderness Genitourinary-deferred Neuro-awake alert oriented x3, Psychiatric-not agitated, cooperative, Labs/Diagnostic Data Labs/Diagnostic Data Laboratory Tests Test 06/08/25 17:07 06/08/25 12:09 06/08/25 05:49 06/08/25 04:50 Range/Units POC Glucose 126 H 159 H 113 H 70-106 mg/dl White Blood Count 6.3 # 4.4-10.8 10^3/uL Red Blood Count 4.10 4.0-5.20 10^6/uL Hemoglobin 11.6 L 12.2-16.2 g/dL Hematocrit 33.9 #L 36.0-46.0 % Mean Corpuscular Volume 82.7 80.0-100.0 fL Mean Corpuscular Hemoglobin 28.2 28.0-32.0 pg Mean Corpuscular Hemoglobin Concent 34.1 32.0-36.0 g/dL Red Cell Distribution Width 14.3 11.8-14.3 % Platelet Count 364 140-450 10^3/uL Mean Platelet Volume 6.7 L 6.9-10.8 fL Neutrophils (%) (Auto) 57.1 37.0-80.0 % Lymphocytes (%) (Auto) 30.0 10.0-50.0 % Monocytes (%) (Auto) 9.6 0.0-12.0 % Eosinophils (%) (Auto) 3.0 0.0-7.0 % Basophils (%) (Auto) 0.3 0.0-2.0 % Neutrophils # (Auto) 3.6 1.6-8.6 10 ^3/uL Lymphocytes # (Auto) 1.9 0.4-5.4 10 ^3/uL Monocytes # (Auto) 0.6 0-1.3 10 ^3/uL Eosinophils # (Auto) 0.2 0-0.8 10 ^3/uL Basophils # (Auto) 0 0-0.2 10 ^3/uL Nucleated Red Blood Cells 0.1 % Sodium Level 136 136-145 mmol/L Potassium Level 3.9 3.5-5.1 mmol/L Chloride Level 104 98-107 mmol/L Carbon Dioxide Level 20 20-31 mmol/L Anion Gap 12 5-15 Blood Urea Nitrogen 7 L 9-23 mg/dL Creatinine 2.24 #H 0.550-1.02 mg/dL Glomerular Filtration Rate Calc 25 >90 mL/min BUN/Creatinine Ratio 3.1 L 10.0-20.0 Serum Glucose 103 74-106 mg/dL Calcium Level 8.8 8.7-10.4 mg/dL Total Bilirubin 0.4 0.2-1.0 mg/dL Aspartate Amino Transferase (AST) 68 H 13-40 U/L Alanine Aminotransferase (ALT) 49 H 7-40 U/L Alkaline Phosphatase 74 46-116 U/L Total Protein 6.6 5.7-8.2 g/dL Albumin 3.4 3.2-4.8 g/dL Random Vancomycin Level 9.2 5-10 ug/mL Test 06/08/25 00:27 06/07/25 16:04 06/07/25 15:12 06/07/25 14:11 Range/Units POC Glucose 133 H 70-106 mg/dl Urine Color Yellow Yellow Urine Clarity Turbid H Clear Urine pH 5.0 5.0-9.0 Urine Specific [place] 1.015 1.001-1.035 Urine Protein Trace H Negative Urine Ketones Negative Negative Urine Blood 1+ H Negative /uL Urine Nitrite Negative Negative Urine Bilirubin Negative Negative Urine Urobilinogen Normal Negative mg/dL Urine Leukocyte Esterase 3+ Negative /uL Urine RBC 8 0 - 4 /hpf Urine Microscopic WBC 14 H 0-5 /HPF Urine Squamous Epithelial Cells Few <5 /hpf Urine Bacteria Few H None Seen /hpf Urine Mucus Few None Seen Urine Yeast (Budding) Occasional None Seen /hpf Urine Glucose 4+ H Normal mg/dL Troponin I High Sensitivity 4 </=34 ng/L Lactic Acid Level 2.6 *H 0.4-2.0 mmol/L Test 06/07/25 13:21 06/07/25 12:10 Range/Units Troponin I High Sensitivity < 3 L 4 </=34 ng/L White Blood Count 8.6 4.4-10.8 10^3/uL Red Blood Count 4.70 4.0-5.20 10^6/uL Hemoglobin 13.4 12.2-16.2 g/dL Hematocrit 39.2 36.0-46.0 % Mean Corpuscular Volume 83.4 80.0-100.0 fL Mean Corpuscular Hemoglobin 28.5 28.0-32.0 pg Mean Corpuscular Hemoglobin Concent 34.2 32.0-36.0 g/dL Red Cell Distribution Width 14.2 11.8-14.3 % Platelet Count 427 140-450 10^3/uL Mean Platelet Volume 6.4 L 6.9-10.8 fL Neutrophils (%) (Auto) 65.1 37.0-80.0 % Lymphocytes (%) (Auto) 25.4 10.0-50.0 % Monocytes (%) (Auto) 7.4 0.0-12.0 % Eosinophils (%) (Auto) 1.8 0.0-7.0 % Basophils (%) (Auto) 0.3 0.0-2.0 % Neutrophils # (Auto) 5.6 1.6-8.6 10 ^3/uL Lymphocytes # (Auto) 2.2 0.4-5.4 10 ^3/uL Monocytes # (Auto) 0.6 0-1.3 10 ^3/uL Eosinophils # (Auto) 0.2 0-0.8 10 ^3/uL Basophils # (Auto) 0 0-0.2 10 ^3/uL Nucleated Red Blood Cells 0.1 % Sodium Level 135 L 136-145 mmol/L Potassium Level 4.1 3.5-5.1 mmol/L Chloride Level 99 98-107 mmol/L Carbon Dioxide Level 21 20-31 mmol/L Anion Gap 15 5-15 Blood Urea Nitrogen 14 9-23 mg/dL Creatinine 3.91 H 0.550-1.02 mg/dL Glomerular Filtration Rate Calc 13 >90 mL/min BUN/Creatinine Ratio 3.6 L 10.0-20.0 Serum Glucose 157 H 74-106 mg/dL Lactic Acid Level 2.9 *H 0.4-2.0 mmol/L Calcium Level 9.5 8.7-10.4 mg/dL Total Bilirubin 0.4 0.2-1.0 mg/dL Aspartate Amino Transferase (AST) 41 H 13-40 U/L Alanine Aminotransferase (ALT) 50 H 7-40 U/L Alkaline Phosphatase 89 46-116 U/L Total Protein 7.2 5.7-8.2 g/dL Albumin 3.7 3.2-4.8 g/dL Assessment Acute kidney injury secondary to hypotension Diabetes Hypertension Morbid obesity UTI Recommendations Increase NS IV 100 cc/hour Renal function improved since admission Antibiotics U PCR Urine lytes Kidney ultrasound Plan discussed with: Patient EDUARDO GASTELUM MD Jun 08, 2025 19:50
[2025-06-08] MEDS: ACETAMINOPHEN 325 MG TAB PO PRN (20:29)
[2025-06-08] MEDS: SODIUM CHLORIDE 0.9% 1,000 ML IV SCH (20:31)
--- NOTE | 2025-06-08 21:03 | DVH ---
INDICATION: fidel TECHNIQUE: Multiple real-time sonographic images of the kidneys and bladder were obtained. COMPARISON: None FINDINGS: The right kidney measures 11.4 cm in length, which is normal in size. There is normal echogenicity of the right kidney. No hydronephrosis. The left kidney measures 12.6 cm in length, which is normal in size. There is normal echogenicity of the left kidney. There is mild left pyelocaliectasis. No large intraluminal masses are seen in the bladder. Prior to voiding the bladder volume measures volume 117.9 cc. Wall of the bladder measures 4.3 mm No postvoid bladder volume received. IMPRESSION: 1. Normal sonographic appearance of the kidneys. No hydronephrosis. 2. Questionable mild left pyelocaliectasis.
[2025-06-09] VITALS (8 sets, daily range): BP systolic 111–145; BP diastolic 61–92; PULSE 76–90; RESP 16–20; TEMP 97–98.6; O2SAT 95–99
[2025-06-09 01:29] LABS: Protein, Urine 13.4 mg/dL (1-14)
[2025-06-09 07:37] LABS: Hematocrit 33.4 % (36.0-46.0); Hemoglobin 11.4 g/dL (12.2-16.2); Mean Corpuscular Hemoglobin 28.5 pg (28.0-32.0); Mean Corpuscular Volume 83.7 fL (80.0-100.0); Nucleated Red Blood Cells % 0.0 %
[2025-06-09] MEDS: VANCOMYCIN 1GM/250ML KIT 250 ML IV SCH (14:51)
--- NOTE | 2025-06-09 15:58 | DVHPN2 ---
Progress Note Date Seen: Jun 09, 2025 Medical Necessity Reason Pt with a Central, PICC or Fol: No Subjective Patient reports: Feels better Objective vital signs Vital Sign Date Time Temp Pulse Resp B/P (MAP) Pulse Ox O2 Delivery O2 Flow Rate FiO2 06/09/25 13:00 98.3 76 16 145/87 (106) 95 98.3 06/09/25 08:00 Nasal Cannula* 2 28 Total Intake and Output 06/08/25 06/08/25 06/09/25 15:00 23:00 07:00 Intake Total 236 ml 2094 ml 2450 ml Output Total 2000 ml 1550 ml Balance 236 ml 94 ml 900 ml medications Current Medications Medications Dose Ordered Sig/Ginger Route Start Time Stop Time Status Last Admin Dose Admin Ceftriaxone Sodium 50 ml @ 100 mls/hr DAILY@09 IV 06/08/25 09:00 06/09/25 08:56 100 MLS/HR Vancomycin HCl 0 ml @ 0 mls/hr PER PHARMACY IV 06/07/25 18:45 Diagnostic Test (Pha) 1 strip Q6HR 06/08/25 00:00 06/09/25 11:35 1 STRIP Insulin Human Regular Q6HR SC 06/08/25 00:00 06/09/25 11:45 2 UNITS Dextrose 50 ml UD PRN IV 06/07/25 18:45 Acetaminophen/ Hydrocodone Bitart 1 tab Q4HP PRN PO 06/07/25 18:45 Ondansetron HCl 4 mg Q4HP PRN IV 06/07/25 18:45 06/08/25 09:33 4 MG Docusate Sodium 100 mg BIDPRN PRN PO 06/07/25 18:45 Acetaminophen 650 mg Q6HP PRN PO 06/07/25 18:45 06/09/25 05:36 650 MG Midodrine 10 mg TID@0600,1200,1800 PO 06/08/25 06:00 06/08/25 05:49 10 MG Nitroglycerin 0.4 mg Q5MINP PRN SL 06/07/25 21:30 Morphine Sulfate 2 mg Q30M PRN IV 06/07/25 21:30 Aspirin 81 mg DAILY PO 06/08/25 10:00 06/09/25 08:56 81 MG Sodium Chloride 1,000 ml @ 100 mls/hr Q10H IV 06/08/25 20:00 06/09/25 04:53 100 MLS/HR Vancomycin HCl 250 ml @ 200 mls/hr DAILY@1400 IV 06/09/25 14:00 06/09/25 14:51 200 MLS/HR laboratory and microbiology Laboratory Tests 06/09/25 06:19 06/08/25 04:50 Test 06/08/25 04:50 Range/Units Serum Glucose 103 74-106 mg/dL Microbiology Date/Time Source Procedure Growth Status 06/07/25 16:04 Voided Urine Urine Culture - Preliminary Resulted 06/07/25 12:16 Blood Blood Culture - Preliminary NO GROWTH AFTER 48 HOURS OF INCUBATION. Resulted Problem List/Assessment/Plan Problem List/Assessment/Plan Acute kidney injury secondary to hypotension Diabetes Hypertension Morbid obesity UTI, + yeast John resolved IVF until DC Antibiotics, infection treatment per primary Kidney ultrasound unremarkable urine electrolytes unremarkable stable from renal standpoint Plan discussed with: Patient FRANCISCO CUENCA MD Jun 09, 2025 15:58
--- NOTE | 2025-06-09 16:31 | DVHPN2 ---
Subjective Overnight events noted patient was recently hospitalized at [facility] was treated for some infection. Patient's presented to hospital with a nausea and vomiting as well as near-syncope. Reviewed: H&P Changes from previous H/P or p: No Changes Eyes: No Pain, No Vision change, No Conjunctivae inflammation, No Eyelid inflammation, No Other, No Redness ENT: No Ear pain, No Ear discharge, No Nose pain, No Nose discharge, No Nose congestion, No Mouth pain, No Mouth swelling, No Throat pain, No Throat swelling, No Other Cardiovascular: No Chest Pain, No Palpitations, No Orthopnea, No Paroxysmal Noc. Dyspnea, No Edema, No Lt Headedness, No Other Respiratory: No Cough, No Dry, No Shortness of breath, No SOB with excertion, No Wheezing, No Hemoptysis, No Pleuritic Pain, No Sputum, No Other Gastrointestinal: Nausea, Vomiting; No Abdominal Pain, No Diarrhea, No Constipation, No Melena, No Hematochezia, No Other Genitourinary: No Dysuria, No Frequency, No Incontinence, No Hematuria, No Retention, No Other Musculoskeletal: No other, No neck pain, No shoulder pain, No arm pain, No back pain, No hand pain, No leg pain, No foot pain Skin: No Rash, No Lesions, No Jaundice, No Bruising, No Other Objective Vitals Vital Signs Date Time Temp Pulse Resp B/P (MAP) Pulse Ox O2 Delivery O2 Flow Rate FiO2 06/09/25 13:00 98.3 76 16 145/87 (106) 95 98.3 06/09/25 08:00 Nasal Cannula* 2 28 Intake/Output Intake and Output 06/09/25 07:00 Intake Total 4780 ml Output Total 3550 ml Balance 1230 ml Intake Oral 3440 ml IV Total 1340 ml Output Urine Total 3550 ml # Voids 3 # Bowel Movements 1 Exam HEENT pupils are reactive Neck is supple CV is S1-S2 regular rate and rhythm Diminished breath sounds bases GI positive bowel sound Extremity no edema [employer] no motor deficit General Appearance: Alert, Oriented X3 HEENT: Atraumatic Lungs: Clear to auscultation Cardiovascular: Regular rate, Normal S1, Normal S2 Abdomen: Normal bowel sounds Medications Current Medications Medications Dose Ordered Sig/Ginger Route Start Time Stop Time Status Last Admin Dose Admin Ceftriaxone Sodium 50 ml @ 100 mls/hr DAILY@09 IV 06/08/25 09:00 06/09/25 08:56 100 MLS/HR Vancomycin HCl 0 ml @ 0 mls/hr PER PHARMACY IV 06/07/25 18:45 Diagnostic Test (Pha) 1 strip Q6HR 06/08/25 00:00 06/09/25 11:35 1 STRIP Insulin Human Regular Q6HR SC 06/08/25 00:00 06/09/25 11:45 2 UNITS Dextrose 50 ml UD PRN IV 06/07/25 18:45 Acetaminophen/ Hydrocodone Bitart 1 tab Q4HP PRN PO 06/07/25 18:45 Ondansetron HCl 4 mg Q4HP PRN IV 06/07/25 18:45 06/08/25 09:33 4 MG Docusate Sodium 100 mg BIDPRN PRN PO 06/07/25 18:45 Acetaminophen 650 mg Q6HP PRN PO 06/07/25 18:45 06/09/25 05:36 650 MG Midodrine 10 mg TID@0600,1200,1800 PO 06/08/25 06:00 06/08/25 05:49 10 MG Nitroglycerin 0.4 mg Q5MINP PRN SL 06/07/25 21:30 Morphine Sulfate 2 mg Q30M PRN IV 06/07/25 21:30 Aspirin 81 mg DAILY PO 06/08/25 10:00 06/09/25 08:56 81 MG Sodium Chloride 1,000 ml @ 100 mls/hr Q10H IV 06/08/25 20:00 06/09/25 04:53 100 MLS/HR Vancomycin HCl 250 ml @ 200 mls/hr DAILY@1400 IV 06/09/25 14:00 06/09/25 14:51 200 MLS/HR Laboratory Results Laboratory Tests 06/08/25 04:50 06/09/25 06:19 Urinalysis Test 06/07/25 16:04 06/08/25 23:53 Urine Color Yellow (Yellow) Urine Clarity Turbid (Clear) H Urine pH 5.0 (5.0-9.0) Urine Specific [place] 1.015 (1.001-1.035) Urine Protein Trace (Negative) H Urine Ketones Negative (Negative) Urine Blood 1+ /uL (Negative) H Urine Nitrite Negative (Negative) Urine Bilirubin Negative (Negative) Urine Urobilinogen Normal mg/dL (Negative) Urine Leukocyte Esterase 3+ /uL (Negative) Urine RBC 8 /hpf (0 - 4) Urine Microscopic WBC 14 /HPF (0-5) H Urine Squamous Epithelial Cells Few /hpf (<5) Urine Bacteria Few /hpf (None Seen) H Urine Mucus Few (None Seen) Urine Yeast (Budding) Occasional /hpf (None Urine Glucose 4+ mg/dL (Normal) H Urine Creatinine 61.37 mg/dL (30.0-125.0) Urine Sodium 41 mmol/L (40-220) Urine Total Protein 13.4 mg/dL (1-14) Microbiology Microbiology Date/Time Source Procedure Growth Status 06/07/25 16:04 Voided Urine Urine Culture - Preliminary Resulted 06/07/25 12:16 Blood Blood Culture - Preliminary NO GROWTH AFTER 48 HOURS OF INCUBATION. Resulted Assessment/Plan Assessment/Plan 60-year-old female with a known history of diabetes mellitus type 2, left foot ulcer presented to the hospital with a intractable nausea and vomiting found to have 1. Hypotension with a near-syncope likely relative hypotension with a history of hypertension 2. Intractable nausea and vomiting 3. Dizziness 4. Acute kidney injury suspected secondary to vasomotor nephropathy 5. Diabetes mellitus type 2 with hyperglycemia 6. Left foot ulcer -follow up until follow up blood count and treatment. -continue antibiotics until the blood cultures are back Plan discussed with: Patient My Orders Orders - KAREN MIKE MD Procedure Category Date Status Time Cardiac DIET 06/09/25 Transmitted Diet-2gna,Lofat,Lochol Dinner Pt Request For Service PT 06/09/25 Logged 15:02 Date of Service: Jun 09, 2025 Billing Provider: KAREN MIKE MD Common Visit Codes: [id number] INP/OBS CARE(HIGH) KAREN MIKE MD Jun 09, 2025 16:31
[2025-06-10] VITALS (11 sets, daily range): BP systolic 115–162; BP diastolic 61–97; PULSE 60–113; RESP 18–97; TEMP 97.3–99.4; O2SAT 94–99
[2025-06-10 06:16] LABS: Hematocrit 32.3 % (36.0-46.0); Hemoglobin 11.1 g/dL (12.2-16.2); Mean Corpuscular Hemoglobin 28.4 pg (28.0-32.0); Mean Corpuscular Volume 82.6 fL (80.0-100.0); Nucleated Red Blood Cells % 0.2 %
--- NOTE | 2025-06-10 11:17 | DVHPN2 ---
Progress Note Date Seen: Jun 10, 2025 Medical Necessity Reason Pt with a Central, PICC or Fol: No Objective vital signs Vital Sign Date Time Temp Pulse Resp B/P (MAP) Pulse Ox O2 Delivery O2 Flow Rate FiO2 06/10/25 08:00 71 20 Room Air* 0 21 06/10/25 04:36 98.4 127/64 (85) 99 98.4 Total Intake and Output 06/09/25 06/09/25 06/10/25 15:00 23:00 07:00 Intake Total 1050 ml 900 ml 1500 ml Output Total 600 ml Balance 1050 ml 900 ml 900 ml medications Current Medications Medications Dose Ordered Sig/Ginger Route Start Time Stop Time Status Last Admin Dose Admin Ceftriaxone Sodium 50 ml @ 100 mls/hr DAILY@09 IV 06/08/25 09:00 06/10/25 08:15 100 MLS/HR Vancomycin HCl 0 ml @ 0 mls/hr PER PHARMACY IV 06/07/25 18:45 Diagnostic Test (Pha) 1 strip Q6HR 06/08/25 00:00 06/10/25 05:22 1 STRIP Insulin Human Regular Q6HR SC 06/08/25 00:00 06/10/25 05:23 2 UNITS Dextrose 50 ml UD PRN IV 06/07/25 18:45 Acetaminophen/ Hydrocodone Bitart 1 tab Q4HP PRN PO 06/07/25 18:45 Ondansetron HCl 4 mg Q4HP PRN IV 06/07/25 18:45 06/10/25 08:15 4 MG Docusate Sodium 100 mg BIDPRN PRN PO 06/07/25 18:45 Acetaminophen 650 mg Q6HP PRN PO 06/07/25 18:45 06/10/25 05:14 650 MG Midodrine 10 mg TID@0600,1200,1800 PO 06/08/25 06:00 06/08/25 05:49 10 MG Nitroglycerin 0.4 mg Q5MINP PRN SL 06/07/25 21:30 Morphine Sulfate 2 mg Q30M PRN IV 06/07/25 21:30 Aspirin 81 mg DAILY PO 06/08/25 10:00 06/10/25 09:35 81 MG Sodium Chloride 1,000 ml @ 100 mls/hr Q10H IV 06/08/25 20:00 06/10/25 02:14 100 MLS/HR Vancomycin HCl 250 ml @ 200 mls/hr DAILY@1400 IV 06/09/25 14:00 06/09/25 14:51 200 MLS/HR Examination: GENERAL:Normal, CVS:Normal laboratory and microbiology Laboratory Tests 06/10/25 05:08 06/08/25 04:50 Test 06/08/25 04:50 Range/Units Serum Glucose 103 74-106 mg/dL Microbiology Date/Time Source Procedure Growth Status 06/07/25 16:04 Voided Urine Urine Culture - Preliminary Resulted 06/07/25 12:16 Blood Blood Culture - Preliminary NO GROWTH AFTER 48 HOURS OF INCUBATION. Resulted Problem List/Assessment/Plan Problem List/Assessment/Plan Acute kidney injury secondary to hypotension Diabetes Hypertension Morbid obesity UTI, + yeast John resolved IVF until DC Antibiotics, infection treatment per primary Kidney ultrasound unremarkable urine electrolytes unremarkable stable from renal standpoint, will sign off Plan discussed with: Patient Dietary Evaluation Review Comments: Patient with obesity and uncontrolled diabetes mellitus (DM). Delayed healing of diabetic foot ulcer (DFU) likely related to poor glycemic control. Intervention: Reinforce Consistent Carbohydrate (CCHO-45) Cardiac Diet. Emphasize adequate dietary management for DM and glucose control. Coordinate with nursing and medical team for blood glucose monitoring and insulin adjustments as needed. Plan: Continue current nutrition therapy with strict adherence to CCHO-45 Cardiac Diet. Monitor blood glucose trends and wound healing progress. Reassess nutrition needs and wound status regularly. Expected Outcomes/Goals: Nutrition Assessment: Adequate nutrition support and glucose management is essential for skin healing and prevention of breakdown. FRANCISCO CUENCA MD Jun 10, 2025 11:17
--- NOTE | 2025-06-10 13:56 | DVHPN2 ---
Subjective Overnight events noted patient was recently hospitalized at [facility] was treated for some infection. Patient's presented to hospital with a nausea and vomiting as well as near-syncope. Reviewed: H&P Changes from previous H/P or p: No Changes Eyes: No Pain, No Vision change, No Conjunctivae inflammation, No Eyelid inflammation, No Other, No Redness ENT: No Ear pain, No Ear discharge, No Nose pain, No Nose discharge, No Nose congestion, No Mouth pain, No Mouth swelling, No Throat pain, No Throat swelling, No Other Cardiovascular: No Chest Pain, No Palpitations, No Orthopnea, No Paroxysmal Noc. Dyspnea, No Edema, No Lt Headedness, No Other Respiratory: No Cough, No Dry, No Shortness of breath, No SOB with excertion, No Wheezing, No Hemoptysis, No Pleuritic Pain, No Sputum, No Other Gastrointestinal: Nausea, Vomiting; No Abdominal Pain, No Diarrhea, No Constipation, No Melena, No Hematochezia, No Other Genitourinary: No Dysuria, No Frequency, No Incontinence, No Hematuria, No Retention, No Other Musculoskeletal: No other, No neck pain, No shoulder pain, No arm pain, No back pain, No hand pain, No leg pain, No foot pain Skin: No Rash, No Lesions, No Jaundice, No Bruising, No Other Objective Vitals Vital Signs Date Time Temp Pulse Resp B/P (MAP) Pulse Ox O2 Delivery O2 Flow Rate FiO2 06/10/25 08:00 71 20 Room Air* 0 21 06/10/25 04:36 98.4 127/64 (85) 99 98.4 Intake/Output Intake and Output 06/10/25 07:00 Intake Total 3450 ml Output Total 600 ml Balance 2850 ml Intake Oral 1150 ml IV Total 2300 ml Output Urine Total 600 ml # Voids 2 Exam HEENT pupils are reactive Neck is supple CV is S1-S2 regular rate and rhythm Diminished breath sounds bases GI positive bowel sound Extremity no edema [employer] no motor deficit General Appearance: Alert, Oriented X3 HEENT: Atraumatic Lungs: Clear to auscultation Cardiovascular: Regular rate, Normal S1, Normal S2 Abdomen: Normal bowel sounds Medications Current Medications Medications Dose Ordered Sig/Ginger Route Start Time Stop Time Status Last Admin Dose Admin Ceftriaxone Sodium 50 ml @ 100 mls/hr DAILY@09 IV 06/08/25 09:00 06/10/25 08:15 100 MLS/HR Vancomycin HCl 0 ml @ 0 mls/hr PER PHARMACY IV 06/07/25 18:45 Diagnostic Test (Pha) 1 strip Q6HR 06/08/25 00:00 06/10/25 11:42 1 STRIP Insulin Human Regular Q6HR SC 06/08/25 00:00 06/10/25 05:23 2 UNITS Dextrose 50 ml UD PRN IV 06/07/25 18:45 Acetaminophen/ Hydrocodone Bitart 1 tab Q4HP PRN PO 06/07/25 18:45 Ondansetron HCl 4 mg Q4HP PRN IV 06/07/25 18:45 06/10/25 08:15 4 MG Docusate Sodium 100 mg BIDPRN PRN PO 06/07/25 18:45 Acetaminophen 650 mg Q6HP PRN PO 06/07/25 18:45 06/10/25 05:14 650 MG Midodrine 10 mg TID@0600,1200,1800 PO 06/08/25 06:00 06/10/25 12:00 10 MG Nitroglycerin 0.4 mg Q5MINP PRN SL 06/07/25 21:30 Morphine Sulfate 2 mg Q30M PRN IV 06/07/25 21:30 Aspirin 81 mg DAILY PO 06/08/25 10:00 06/10/25 09:35 81 MG Sodium Chloride 1,000 ml @ 100 mls/hr Q10H IV 06/08/25 20:00 06/10/25 12:02 100 MLS/HR Vancomycin HCl 250 ml @ 200 mls/hr DAILY@1400 IV 06/09/25 14:00 06/09/25 14:51 200 MLS/HR Laboratory Results Laboratory Tests 06/08/25 04:50 06/10/25 05:08 Urinalysis Test 06/07/25 16:04 06/08/25 23:53 Urine Color Yellow (Yellow) Urine Clarity Turbid (Clear) H Urine pH 5.0 (5.0-9.0) Urine Specific [place] 1.015 (1.001-1.035) Urine Protein Trace (Negative) H Urine Ketones Negative (Negative) Urine Blood 1+ /uL (Negative) H Urine Nitrite Negative (Negative) Urine Bilirubin Negative (Negative) Urine Urobilinogen Normal mg/dL (Negative) Urine Leukocyte Esterase 3+ /uL (Negative) Urine RBC 8 /hpf (0 - 4) Urine Microscopic WBC 14 /HPF (0-5) H Urine Squamous Epithelial Cells Few /hpf (<5) Urine Bacteria Few /hpf (None Seen) H Urine Mucus Few (None Seen) Urine Yeast (Budding) Occasional /hpf (None Urine Glucose 4+ mg/dL (Normal) H Urine Creatinine 61.37 mg/dL (30.0-125.0) Urine Sodium 41 mmol/L (40-220) Urine Total Protein 13.4 mg/dL (1-14) Microbiology Microbiology Date/Time Source Procedure Growth Status 06/07/25 16:04 Voided Urine Urine Culture - Preliminary Resulted 06/07/25 12:16 Blood Blood Culture - Preliminary NO GROWTH AFTER 72 HOURS OF INCUBATION. Resulted Assessment/Plan Assessment/Plan 60-year-old female with a known history of diabetes mellitus type 2, left foot ulcer presented to the hospital with a intractable nausea and vomiting found to have 1. Hypotension with a near-syncope likely relative hypotension with a history of hypertension 2. Intractable nausea and vomiting 3. Dizziness 4. Acute kidney injury suspected secondary to vasomotor nephropathy 5. Diabetes mellitus type 2 with hyperglycemia 6. Left foot ulcer -follow up until follow up blood count and treatment. -continue antibiotics until the blood cultures are back Plan discussed with: Patient My Orders Orders - KAREN MIKE MD Procedure Category Date Status Time Cardiac DIET 06/09/25 Transmitted Diet-2gna,Lofat,Lochol Dinner Pt Request For Service PT 06/09/25 Logged 15:02 Orthostatic Vital ORDERS 06/09/25 Transmitted Signs 16:31 * Dietary Consult CONS 06/09/25 Transmitted 18:58 Cleanse Wound With FREDERIC 06/09/25 In Process Wound Clean 11:35 Date of Service: Jun 10, 2025 Billing Provider: KAREN MIKE MD Common Visit Codes: [id number] INP/OBS CARE(HIGH) KAREN MIKE MD Jun 10, 2025 13:56
[2025-06-11] VITALS (10 sets, daily range): BP systolic 124–156; BP diastolic 2–92; PULSE 55–91; RESP 17–19; TEMP 97–98.3; O2SAT 92–97
[2025-06-11 05:39] LABS: Hematocrit 31.5 % (36.0-46.0); Hemoglobin 10.9 g/dL (12.2-16.2); Mean Corpuscular Hemoglobin 28.6 pg (28.0-32.0); Mean Corpuscular Volume 82.4 fL (80.0-100.0); Nucleated Red Blood Cells % 0.3 %
[2025-06-11] MEDS: METOCLOPRAMIDE HCL 10 MG TAB PO PRN (16:01)
--- NOTE | 2025-06-11 16:21 | MEDREC ---
[facility] Intervention Section I [facility] Intervention: Review courses of therapy (URINE CULTURE POSITIVE FOR PRESUMPTIVE ALYSSIA ALBICANS - PLEASE CONSIDER ADDING ANTIFUNGAL IF CLINICALLY RELEVANT ) YOLANDA HANCOCK PHARMACIST Jun 11, 2025 16:21
--- NOTE | 2025-06-11 16:27 | DVHPN2 ---
Subjective Overnight events noted patient was recently hospitalized at [facility] was treated for some infection. Patient's presented to hospital with a nausea and vomiting as well as near-syncope. Overnight events noted. Patient is complaining of nausea and vomiting Reglan has been ordered. Reviewed: H&P Changes from previous H/P or p: No Changes Eyes: No Pain, No Vision change, No Conjunctivae inflammation, No Eyelid inflammation, No Other, No Redness ENT: No Ear pain, No Ear discharge, No Nose pain, No Nose discharge, No Nose congestion, No Mouth pain, No Mouth swelling, No Throat pain, No Throat swelling, No Other Cardiovascular: No Chest Pain, No Palpitations, No Orthopnea, No Paroxysmal Noc. Dyspnea, No Edema, No Lt Headedness, No Other Respiratory: No Cough, No Dry, No Shortness of breath, No SOB with excertion, No Wheezing, No Hemoptysis, No Pleuritic Pain, No Sputum, No Other Gastrointestinal: Nausea, Vomiting; No Abdominal Pain, No Diarrhea, No Constipation, No Melena, No Hematochezia, No Other Genitourinary: No Dysuria, No Frequency, No Incontinence, No Hematuria, No Retention, No Other Musculoskeletal: No other, No neck pain, No shoulder pain, No arm pain, No back pain, No hand pain, No leg pain, No foot pain Skin: No Rash, No Lesions, No Jaundice, No Bruising, No Other Objective Vitals Vital Signs Date Time Temp Pulse Resp B/P (MAP) Pulse Ox O2 Delivery O2 Flow Rate FiO2 06/11/25 12:49 97.8 59 17 146/90 (108) 94 97.8 06/11/25 08:00 Room Air* 0 21 Intake/Output Intake and Output 06/11/25 07:00 Intake Total 2030 ml Balance 2030 ml Intake Oral 1530 ml IV Total 500 ml # Voids 5 # Bowel Movements 4 Exam HEENT pupils are reactive Neck is supple CV is S1-S2 regular rate and rhythm Diminished breath sounds bases GI positive bowel sound Extremity no edema 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 General Appearance: Alert, Oriented X3 HEENT: Atraumatic Lungs: Clear to auscultation Cardiovascular: Regular rate, Normal S1, Normal S2 Abdomen: Normal bowel sounds Medications Current Medications Medications Dose Ordered Sig/Ginger Route Start Time Stop Time Status Last Admin Dose Admin Ceftriaxone Sodium 50 ml @ 100 mls/hr DAILY@09 IV 06/08/25 09:00 06/11/25 08:20 100 MLS/HR Vancomycin HCl 0 ml @ 0 mls/hr PER PHARMACY IV 06/07/25 18:45 Diagnostic Test (Pha) 1 strip Q6HR 06/08/25 00:00 06/11/25 12:02 1 STRIP Insulin Human Regular Q6HR SC 06/08/25 00:00 06/11/25 12:10 2 UNITS Dextrose 50 ml UD PRN IV 06/07/25 18:45 Acetaminophen/ Hydrocodone Bitart 1 tab Q4HP PRN PO 06/07/25 18:45 Ondansetron HCl 4 mg Q4HP PRN IV 06/07/25 18:45 06/11/25 08:03 4 MG Docusate Sodium 100 mg BIDPRN PRN PO 06/07/25 18:45 Acetaminophen 650 mg Q6HP PRN PO 06/07/25 18:45 06/10/25 05:14 650 MG Midodrine 10 mg TID@0600,1200,1800 PO 06/08/25 06:00 06/11/25 12:08 10 MG Nitroglycerin 0.4 mg Q5MINP PRN SL 06/07/25 21:30 Morphine Sulfate 2 mg Q30M PRN IV 06/07/25 21:30 Aspirin 81 mg DAILY PO 06/08/25 10:00 06/10/25 09:35 81 MG Sodium Chloride 1,000 ml @ 100 mls/hr Q10H IV 06/08/25 20:00 06/11/25 08:03 100 MLS/HR Metoclopramide HCl 5 mg TID PRN PO 06/11/25 11:00 06/11/25 16:01 5 MG Vancomycin HCl 250 ml @ 250 mls/hr Q12H IV 06/12/25 02:00 Laboratory Results Laboratory Tests 06/08/25 04:50 06/11/25 04:44 Urinalysis Test 06/07/25 16:04 06/08/25 23:53 Urine Color Yellow (Yellow) Urine Clarity Turbid (Clear) H Urine pH 5.0 (5.0-9.0) Urine Specific [place] 1.015 (1.001-1.035) Urine Protein Trace (Negative) H Urine Ketones Negative (Negative) Urine Blood 1+ /uL (Negative) H Urine Nitrite Negative (Negative) Urine Bilirubin Negative (Negative) Urine Urobilinogen Normal mg/dL (Negative) Urine Leukocyte Esterase 3+ /uL (Negative) Urine RBC 8 /hpf (0 - 4) Urine Microscopic WBC 14 /HPF (0-5) H Urine Squamous Epithelial Cells Few /hpf (<5) Urine Bacteria Few /hpf (None Seen) H Urine Mucus Few (None Seen) Urine Yeast (Budding) Occasional /hpf (None Urine Glucose 4+ mg/dL (Normal) H Urine Creatinine 61.37 mg/dL (30.0-125.0) Urine Sodium 41 mmol/L (40-220) Urine Total Protein 13.4 mg/dL (1-14) Microbiology Microbiology Date/Time Source Procedure Growth Status 06/07/25 16:04 Voided Urine Urine Culture - Final Presumptive Radha albicans Complete 06/07/25 12:16 Blood Blood Culture - Preliminary NO GROWTH AFTER 72 HOURS OF INCUBATION. Resulted Assessment/Plan Assessment/Plan 60-year-old female with a known history of diabetes mellitus type 2, left foot ulcer presented to the hospital with a intractable nausea and vomiting found to have 1. Hypotension with a near-syncope likely relative hypotension with a history of hypertension 2. Intractable nausea and vomiting, Reglan has been added 3. Dizziness 4. Acute kidney injury suspected secondary to vasomotor nephropathy 5. Diabetes mellitus type 2 with hyperglycemia 6. Left foot ulcer -add Reglan, diet as tolerated -DVT GI prophylaxis, discharge plan Plan discussed with: Patient, Other My Orders Orders - KAREN MIKE MD Procedure Category Date Status Time Metoclopramide Tablet PHA 06/11/25 In Process (Reglan Tablet) 11:00 Basic Metabolic Panel LAB 06/12/25 Verified 06:00 Complete Blood Count LAB 06/12/25 Verified 06:00 Magnesium LAB 06/12/25 Verified 06:00 Date of Service: Jun 11, 2025 Billing Provider: KAREN MIKE MD Common Visit Codes: [id number] INP/OBS CARE(HIGH) KAREN MIKE MD Jun 11, 2025 16:27
[2025-06-12] VITALS (7 sets, daily range): BP systolic 121–170; BP diastolic 64–97; PULSE 55–96; RESP 15–19; TEMP 97.4–98.5; O2SAT 92–96
[2025-06-12] MEDS: VANCOMYCIN 1GM/250ML KIT 250 ML IV SCH (02:28)
[2025-06-12 06:53] LABS: Anion Gap 13 (5-15); Carbon Dioxide 20 mmol/L (20-31); Sodium 142 mmol/L (136-145)
[2025-06-12 07:08] LABS: BUN/Creatinine Ratio 5.7 (10.0-20.0); Blood Urea Nitrogen < 5 mg/dL (9-23); Calcium 8.3 mg/dL (8.7-10.4); Chloride 109 mmol/L (98-107); Glucose 113 mg/dL (74-106); Magnesium 1.0 mg/dL (1.6-2.6); Potassium 3.3 mmol/L (3.5-5.1)
[2025-06-12 07:12] LABS: Hematocrit 31.7 % (36.0-46.0); Hemoglobin 10.9 g/dL (12.2-16.2); Mean Corpuscular Hemoglobin 28.4 pg (28.0-32.0); Mean Corpuscular Volume 82.9 fL (80.0-100.0); Nucleated Red Blood Cells % 0.0 %
--- NOTE | 2025-06-12 15:41 | DVHPN2 ---
Subjective Overnight events noted patient was recently hospitalized at [facility] was treated for some infection. Patient's presented to hospital with a nausea and vomiting as well as near-syncope. Overnight events noted. Patient is complaining of nausea and vomiting Reglan has been ordered. Patient is still having poor appetite and not able to eat. Patient's urine culture reviewed which shows evidence of more than [id number] of Radha albicans wishes usually we do not treated. Patient is totally asymptomatic. Fluconazole with 100 mg p.o. daily for three days only. Reviewed: H&P Changes from previous H/P or p: No Changes Eyes: No Pain, No Vision change, No Conjunctivae inflammation, No Eyelid inflammation, No Other, No Redness ENT: No Ear pain, No Ear discharge, No Nose pain, No Nose discharge, No Nose congestion, No Mouth pain, No Mouth swelling, No Throat pain, No Throat swelling, No Other Cardiovascular: No Chest Pain, No Palpitations, No Orthopnea, No Paroxysmal Noc. Dyspnea, No Edema, No Lt Headedness, No Other Respiratory: No Cough, No Dry, No Shortness of breath, No SOB with excertion, No Wheezing, No Hemoptysis, No Pleuritic Pain, No Sputum, No Other Gastrointestinal: Nausea, Vomiting; No Abdominal Pain, No Diarrhea, No Constipation, No Melena, No Hematochezia, No Other Genitourinary: No Dysuria, No Frequency, No Incontinence, No Hematuria, No Retention, No Other Musculoskeletal: No other, No neck pain, No shoulder pain, No arm pain, No back pain, No hand pain, No leg pain, No foot pain Skin: No Rash, No Lesions, No Jaundice, No Bruising, No Other Objective Vitals Vital Signs Date Time Temp Pulse Resp B/P (MAP) Pulse Ox O2 Delivery O2 Flow Rate FiO2 06/12/25 12:48 97.4 55 15 149/75 (99) 92 97.4 06/12/25 08:00 Room Air* 0 21 Intake/Output Intake and Output 06/12/25 07:00 Intake Total 1030 ml Balance 1030 ml Intake Oral 1030 ml # Voids 5 # Bowel Movements 3 Exam HEENT pupils are reactive Neck is supple CV is S1-S2 regular rate and rhythm Diminished breath sounds bases GI positive bowel sound Extremity no 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 General Appearance: Alert, Oriented X3 HEENT: Atraumatic Lungs: Clear to auscultation Cardiovascular: Regular rate, Normal S1, Normal S2 Abdomen: Normal bowel sounds Medications Current Medications Medications Dose Ordered Sig/Ginger Route Start Time Stop Time Status Last Admin Dose Admin Diagnostic Test (Pha) 1 strip Q6HR 06/08/25 00:00 06/12/25 11:55 1 STRIP Insulin Human Regular Q6HR SC 06/08/25 00:00 06/11/25 12:10 2 UNITS Dextrose 50 ml UD PRN IV 06/07/25 18:45 Acetaminophen/ Hydrocodone Bitart 1 tab Q4HP PRN PO 06/07/25 18:45 Ondansetron HCl 4 mg Q4HP PRN IV 06/07/25 18:45 06/11/25 08:03 4 MG Docusate Sodium 100 mg BIDPRN PRN PO 06/07/25 18:45 Acetaminophen 650 mg Q6HP PRN PO 06/07/25 18:45 06/12/25 12:03 650 MG Midodrine 10 mg TID@0600,1200,1800 PO 06/08/25 06:00 06/12/25 05:27 10 MG Nitroglycerin 0.4 mg Q5MINP PRN SL 06/07/25 21:30 Morphine Sulfate 2 mg Q30M PRN IV 06/07/25 21:30 Aspirin 81 mg DAILY PO 06/08/25 10:00 06/10/25 09:35 81 MG Sodium Chloride 1,000 ml @ 100 mls/hr Q10H IV 06/08/25 20:00 06/12/25 14:03 100 MLS/HR Metoclopramide HCl 5 mg TID PRN PO 06/11/25 11:00 06/11/25 16:01 5 MG Fluconazole 100 mg DAILY PO 06/12/25 15:30 UNV Laboratory Results Laboratory Tests 06/12/25 04:54 Chemistry Test 06/12/25 04:54 Calcium Level 8.3 mg/dL (8.7-10.4) L Magnesium Level 1.0 mg/dL (1.6-2.6) L Urinalysis Test 06/07/25 16:04 06/08/25 23:53 Urine Color Yellow (Yellow) Urine Clarity Turbid (Clear) H Urine pH 5.0 (5.0-9.0) Urine Specific [place] 1.015 (1.001-1.035) Urine Protein Trace (Negative) H Urine Ketones Negative (Negative) Urine Blood 1+ /uL (Negative) H Urine Nitrite Negative (Negative) Urine Bilirubin Negative (Negative) Urine Urobilinogen Normal mg/dL (Negative) Urine Leukocyte Esterase 3+ /uL (Negative) Urine RBC 8 /hpf (0 - 4) Urine Microscopic WBC 14 /HPF (0-5) H Urine Squamous Epithelial Cells Few /hpf (<5) Urine Bacteria Few /hpf (None Seen) H Urine Mucus Few (None Seen) Urine Yeast (Budding) Occasional /hpf (None Urine Glucose 4+ mg/dL (Normal) H Urine Creatinine 61.37 mg/dL (30.0-125.0) Urine Sodium 41 mmol/L (40-220) Urine Total Protein 13.4 mg/dL (1-14) Microbiology Microbiology Date/Time Source Procedure Growth Status 06/07/25 16:04 Voided Urine Urine Culture - Final Presumptive Radha albicans Complete 06/07/25 12:16 Blood Blood Culture - Final NO GROWTH AFTER 5 DAYS OF INCUBATION. Complete Assessment/Plan Assessment/Plan 60-year-old female with a known history of diabetes mellitus type 2, left foot ulcer presented to the hospital with a intractable nausea and vomiting found to have 1. Hypotension with a near-syncope likely relative hypotension with a history of hypertension 2. Intractable nausea and vomiting, Reglan has been added 3. Dizziness 4. Acute kidney injury suspected secondary to vasomotor nephropathy 5. Diabetes mellitus type 2 with hyperglycemia 6. Left foot ulcer 7. Fungal UTI -add fluconazole for three days -continue regular, diet as tolerated -DVT GI prophylaxis, discharge plan Plan discussed with: Patient My Orders Orders - KAREN MIKE MD Procedure Category Date Status Time Fluconazole Tablet PHA 06/12/25 Logged (Diflucan Tablet) 15:30 Date of Service: Jun 12, 2025 Billing Provider: KAREN MIKE MD Common Visit Codes: [id number] INP/OBS CARE(HIGH) KAREN MIKE MD Jun 12, 2025 15:41
[2025-06-12] MEDS: FLUCONAZOLE 100 MG TAB PO SCH (18:49)
[2025-06-13] VITALS (10 sets, daily range): BP systolic 114–170; BP diastolic 69–99; PULSE 68–103; RESP 17–98; TEMP 97.1–98.8; O2SAT 18–96
--- NOTE | 2025-06-13 15:18 | DVH ---
EXAM: CT CT AB PEL WO CON-NO ORAL OR IV HISTORY: ABDOMINAL PAIN VOMITING Comparison Study: None Exam Date: 06/13/2025 02:44 PM Radiation Dose Information: CT Dose: CTDI volume is 27 mGy. Dose-length product is 1437 mGy*cm Technique: Multidetector CT of the abdomen and pelvis was performed. Imaging was performed without IV contrast. Axial, coronal and sagittal multiplanar reformats were obtained from the axial data set by the technologist. Findings: Motion degraded study. Lack of intravenous contrast compromises evaluation of perfusion and for isodense lesions. Lower chest: Bibasilar atelectasis/scarring. Liver: Unremarkable Biliary system: Unremarkable Spleen: Unremarkable Pancreas: Unremarkable. Adrenals: Unremarkable. Kidneys and ureters: No hydronephrosis. Multifocal cortical scarring. Bowel: No obstruction. Bladder: Unremarkable Reproductive organs: No abnormal mass. Lymph nodes: Unremarkable. Peritoneum: Unremarkable Vessels: Patency not evaluated on this noncontrast study. Bones and soft tissue: No aggressive osseous lesion. 8 mm right lateral breast nodule. IMPRESSION: No acute CT findings in the abdomen and pelvis. Limited motion degraded study. 8 mm right lateral breast nodule. Recommend outpatient mammogram /ultrasound for further evaluation.
--- NOTE | 2025-06-13 16:19 | DVHPN2 ---
Subjective Patient stated that she ate lunch but then she threw up, CT abdomen and pelvis has been ordered GI will be consulted. Repeat BNP is pending. Reviewed: H&P Changes from previous H/P or p: No Changes Eyes: No Pain, No Vision change, No Conjunctivae inflammation, No Eyelid inflammation, No Other, No Redness ENT: No Ear pain, No Ear discharge, No Nose pain, No Nose discharge, No Nose congestion, No Mouth pain, No Mouth swelling, No Throat pain, No Throat swelling, No Other Cardiovascular: No Chest Pain, No Palpitations, No Orthopnea, No Paroxysmal Noc. Dyspnea, No Edema, No Lt Headedness, No Other Respiratory: No Cough, No Dry, No Shortness of breath, No SOB with excertion, No Wheezing, No Hemoptysis, No Pleuritic Pain, No Sputum, No Other Gastrointestinal: Nausea, Vomiting; No Abdominal Pain, No Diarrhea, No Constipation, No Melena, No Hematochezia, No Other Genitourinary: No Dysuria, No Frequency, No Incontinence, No Hematuria, No Retention, No Other Musculoskeletal: No other, No neck pain, No shoulder pain, No arm pain, No back pain, No hand pain, No leg pain, No foot pain Skin: No Rash, No Lesions, No Jaundice, No Bruising, No Other Objective Vitals Vital Signs Date Time Temp Pulse Resp B/P (MAP) Pulse Ox O2 Delivery O2 Flow Rate FiO2 06/13/25 12:31 98.6 72 22 167/90 (115) 95 98.6 06/13/25 07:54 Room Air* 0 21 Intake/Output Intake and Output 06/13/25 07:00 Intake Total 3275 ml Balance 3275 ml Intake Oral 3275 ml # Voids 7 # Bowel Movements 4 Exam HEENT pupils are reactive Neck is supple CV is S1-S2 regular rate and rhythm Diminished breath sounds bases GI positive bowel sound 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 General Appearance: Alert, Oriented X3 HEENT: Atraumatic Lungs: Clear to auscultation Cardiovascular: Regular rate, Normal S1, Normal S2 Abdomen: Normal bowel sounds Medications Current Medications Medications Dose Ordered Sig/Ginger Route Start Time Stop Time Status Last Admin Dose Admin Diagnostic Test (Pha) 1 strip Q6HR 06/08/25 00:00 06/13/25 13:12 1 STRIP Insulin Human Regular Q6HR SC 06/08/25 00:00 06/13/25 00:00 2 UNITS Dextrose 50 ml UD PRN IV 06/07/25 18:45 Acetaminophen/ Hydrocodone Bitart 1 tab Q4HP PRN PO 06/07/25 18:45 Ondansetron HCl 4 mg Q4HP PRN IV 06/07/25 18:45 06/11/25 08:03 4 MG Docusate Sodium 100 mg BIDPRN PRN PO 06/07/25 18:45 Acetaminophen 650 mg Q6HP PRN PO 06/07/25 18:45 06/13/25 00:46 650 MG Midodrine 10 mg TID@0600,1200,1800 PO 06/08/25 06:00 06/13/25 05:51 10 MG Nitroglycerin 0.4 mg Q5MINP PRN SL 06/07/25 21:30 Morphine Sulfate 2 mg Q30M PRN IV 06/07/25 21:30 Aspirin 81 mg DAILY PO 06/08/25 10:00 06/13/25 09:34 81 MG Sodium Chloride 1,000 ml @ 100 mls/hr Q10H IV 06/08/25 20:00 06/13/25 09:33 100 MLS/HR Metoclopramide HCl 5 mg TID PRN PO 06/11/25 11:00 06/13/25 13:29 5 MG Fluconazole 100 mg DAILY PO 06/12/25 15:30 06/13/25 09:34 100 MG Laboratory Results Laboratory Tests 06/12/25 04:54 06/13/25 05:02 Urinalysis Test 06/07/25 16:04 06/08/25 23:53 Urine Color Yellow (Yellow) Urine Clarity Turbid (Clear) H Urine pH 5.0 (5.0-9.0) Urine Specific [place] 1.015 (1.001-1.035) Urine Protein Trace (Negative) H Urine Ketones Negative (Negative) Urine Blood 1+ /uL (Negative) H Urine Nitrite Negative (Negative) Urine Bilirubin Negative (Negative) Urine Urobilinogen Normal mg/dL (Negative) Urine Leukocyte Esterase 3+ /uL (Negative) Urine RBC 8 /hpf (0 - 4) Urine Microscopic WBC 14 /HPF (0-5) H Urine Squamous Epithelial Cells Few /hpf (<5) Urine Bacteria Few /hpf (None Seen) H Urine Mucus Few (None Seen) Urine Yeast (Budding) Occasional /hpf (None Urine Glucose 4+ mg/dL (Normal) H Urine Creatinine 61.37 mg/dL (30.0-125.0) Urine Sodium 41 mmol/L (40-220) Urine Total Protein 13.4 mg/dL (1-14) Microbiology Microbiology Date/Time Source Procedure Growth Status 06/07/25 16:04 Voided Urine Urine Culture - Final Presumptive Radha albicans Complete 06/07/25 12:16 Blood Blood Culture - Final NO GROWTH AFTER 5 DAYS OF INCUBATION. Complete Assessment/Plan Assessment/Plan 60-year-old female with a known history of diabetes mellitus type 2, left foot ulcer presented to the hospital with a intractable nausea and vomiting found to have 1. Hypotension with a near-syncope likely relative hypotension with a history of hypertension 2. Intractable nausea and vomiting, CT abdomen and pelvis has been ordered has been as GI consultation 3. Dizziness 4. Acute kidney injury suspected secondary to vasomotor nephropathy 5. Diabetes mellitus type 2 with hyperglycemia 6. Left foot ulcer 7. Fungal UTI -add fluconazole for three days -CT abdomen and pelvis, repeat BNP, GI consultation -continue regular, diet as tolerated -DVT GI prophylaxis, discharge plan Plan discussed with: Patient, Other My Orders Orders - KAREN MIKE MD Procedure Category Date Status Time Ct Ab Pel Wo Con-No CT 06/13/25 Resulted Oral Or Iv 14:17 Date of Service: Jun 13, 2025 Billing Provider: KAREN MIKE MD Common Visit Codes: [id number] INP/OBS CARE(HIGH) KAREN MIKE MD Jun 13, 2025 16:19
[2025-06-14] VITALS (8 sets, daily range): BP systolic 135–177; BP diastolic 52–114; PULSE 57–106; RESP 17–19; TEMP 97.8–98.7; O2SAT 91–96
--- NOTE | 2025-06-14 01:53 | ECG ---
[facility] Test Date: 2025-06-14 Test Time: 01:45:24 Pat Name: EKTA GILMORE Department: Respiratoy Room: [facility]3T A Gender: F Pool Cleaner: SHERRIE : 1965 Requested By: KAREN MIKE Order Number: [id number] Reading MD: Demetris Casas Measurements Intervals [place] Rate: 85 P: 62 WI: 164 QRS: 15 QRSD: 96 T: 33 QT: 429 QTc: 511 Interpretive Statements Sinus rhythm Low voltage, precordial leads Prolonged QT interval Electronically Signed On 06-14-2025 10:36:04 PST by Demetris Casas Please click the below link to view image of tracing.
[2025-06-14 04:09] LABS: Hematocrit 36.3 % (36.0-46.0); Hemoglobin 12.2 g/dL (12.2-16.2); Mean Corpuscular Hemoglobin 28.0 pg (28.0-32.0); Mean Corpuscular Volume 83.7 fL (80.0-100.0); Nucleated Red Blood Cells % 0.1 %
[2025-06-14 04:29] LABS: Alanine Aminotransferase 34 U/L (7-40); Albumin 3.3 g/dL (3.2-4.8); Alkaline Phosphatase 76 U/L (46-116); Anion Gap 12 (5-15); Calcium 8.8 mg/dL (8.7-10.4); Chloride 106 mmol/L (98-107); Potassium 3.5 mmol/L (3.5-5.1); Sodium 138 mmol/L (136-145); Total Protein 6.6 g/dL (5.7-8.2)
[2025-06-14 04:30] LABS: Bilirubin, Total 0.5 mg/dL (0.2-1.0)
[2025-06-14 04:32] LABS: BUN/Creatinine Ratio 5.4 (10.0-20.0); Blood Urea Nitrogen < 5 mg/dL (9-23); Carbon Dioxide 20 mmol/L (20-31); Glucose 131 mg/dL (74-106)
[2025-06-14] MEDS: MAGNESIUM SULFATE 1GM/100ML 100 ML IV SCH (05:18)
[2025-06-14] MEDS: MAGNESIUM SULFATE 1GM/100ML 100 ML IV ONE ×2 (05:19→07:02)
--- NOTE | 2025-06-14 16:42 | DVHPN2 ---
Subjective Patient's CT abdomen and pelvis was done which shows no evidence of acute pathology patient is currently tolerating diet. Possible discharge in next 24 hours. Reviewed: H&P Changes from previous H/P or p: No Changes Eyes: No Pain, No Vision change, No Conjunctivae inflammation, No Eyelid inflammation, No Other, No Redness ENT: No Ear pain, No Ear discharge, No Nose pain, No Nose discharge, No Nose congestion, No Mouth pain, No Mouth swelling, No Throat pain, No Throat swelling, No Other Cardiovascular: No Chest Pain, No Palpitations, No Orthopnea, No Paroxysmal Noc. Dyspnea, No Edema, No Lt Headedness, No Other Respiratory: No Cough, No Dry, No Shortness of breath, No SOB with excertion, No Wheezing, No Hemoptysis, No Pleuritic Pain, No Sputum, No Other Gastrointestinal: Nausea, Vomiting; No Abdominal Pain, No Diarrhea, No Constipation, No Melena, No Hematochezia, No Other Genitourinary: No Dysuria, No Frequency, No Incontinence, No Hematuria, No Retention, No Other Musculoskeletal: No other, No neck pain, No shoulder pain, No arm pain, No back pain, No hand pain, No leg pain, No foot pain Skin: No Rash, No Lesions, No Jaundice, No Bruising, No Other Objective Vitals Vital Signs Date Time Temp Pulse Resp B/P (MAP) Pulse Ox O2 Delivery O2 Flow Rate FiO2 06/14/25 13:00 98.7 79 18 148/52 (84) 96 98.7 06/14/25 08:00 Room Air* 0 21 Intake/Output Intake and Output 06/14/25 07:00 Intake Total 2450 ml Balance 2450 ml Intake Oral 1350 ml IV Total 1100 ml # Voids 9 # Bowel Movements 3 Exam HEENT pupils are reactive Neck is supple CV is S1-S2 regular rate and rhythm Diminished breath sounds bases GI positive bowel sound Extremity no 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 General Appearance: Alert, Oriented X3 HEENT: Atraumatic Lungs: Clear to auscultation Cardiovascular: Regular rate, Normal S1, Normal S2 Abdomen: Normal bowel sounds Medications Current Medications Medications Dose Ordered Sig/Ginger Route Start Time Stop Time Status Last Admin Dose Admin Diagnostic Test (Pha) 1 strip Q6HR 06/08/25 00:00 06/14/25 12:00 1 STRIP Insulin Human Regular Q6HR SC 06/08/25 00:00 06/14/25 12:00 3 UNITS Dextrose 50 ml UD PRN IV 06/07/25 18:45 Acetaminophen/ Hydrocodone Bitart 1 tab Q4HP PRN PO 06/07/25 18:45 Ondansetron HCl 4 mg Q4HP PRN IV 06/07/25 18:45 06/11/25 08:03 4 MG Docusate Sodium 100 mg BIDPRN PRN PO 06/07/25 18:45 Acetaminophen 650 mg Q6HP PRN PO 06/07/25 18:45 06/14/25 04:03 650 MG Midodrine 10 mg TID@0600,1200,1800 PO 06/08/25 06:00 06/14/25 10:46 10 MG Nitroglycerin 0.4 mg Q5MINP PRN SL 06/07/25 21:30 Morphine Sulfate 2 mg Q30M PRN IV 06/07/25 21:30 Aspirin 81 mg DAILY PO 06/08/25 10:00 06/14/25 09:45 81 MG Sodium Chloride 1,000 ml @ 100 mls/hr Q10H IV 06/08/25 20:00 06/14/25 03:56 100 MLS/HR Metoclopramide HCl 5 mg TID PRN PO 06/11/25 11:00 06/13/25 13:29 5 MG Fluconazole 100 mg DAILY PO 06/12/25 15:30 06/14/25 09:44 100 MG Laboratory Results Laboratory Tests 06/14/25 03:49 Chemistry Test 06/14/25 03:49 06/14/25 08:55 Albumin 3.3 g/dL (3.2-4.8) Calcium Level 8.8 mg/dL (8.7-10.4) Magnesium Level 1.1 mg/dL (1.6-2.6) L 1.6 mg/dL (1.6-2.6) Total Protein 6.6 g/dL (5.7-8.2) LFT Test 06/14/25 03:49 Alanine Aminotransferase (ALT) 34 U/L (7-40) Alkaline Phosphatase 76 U/L (46-116) Aspartate Amino Transferase (AST) 31 U/L (13-40) Total Bilirubin 0.5 mg/dL (0.2-1.0) Urinalysis Test 06/07/25 16:04 06/08/25 23:53 Urine Color Yellow (Yellow) Urine Clarity Turbid (Clear) H Urine pH 5.0 (5.0-9.0) Urine Specific [place] 1.015 (1.001-1.035) Urine Protein Trace (Negative) H Urine Ketones Negative (Negative) Urine Blood 1+ /uL (Negative) H Urine Nitrite Negative (Negative) Urine Bilirubin Negative (Negative) Urine Urobilinogen Normal mg/dL (Negative) Urine Leukocyte Esterase 3+ /uL (Negative) Urine RBC 8 /hpf (0 - 4) Urine Microscopic WBC 14 /HPF (0-5) H Urine Squamous Epithelial Cells Few /hpf (<5) Urine Bacteria Few /hpf (None Seen) H Urine Mucus Few (None Seen) Urine Yeast (Budding) Occasional /hpf (None Urine Glucose 4+ mg/dL (Normal) H Urine Creatinine 61.37 mg/dL (30.0-125.0) Urine Sodium 41 mmol/L (40-220) Urine Total Protein 13.4 mg/dL (1-14) Microbiology Microbiology Date/Time Source Procedure Growth Status 06/07/25 16:04 Voided Urine Urine Culture - Final Presumptive Radha albicans Complete 06/07/25 12:16 Blood Blood Culture - Final NO GROWTH AFTER 5 DAYS OF INCUBATION. Complete Assessment/Plan Assessment/Plan 60-year-old female with a known history of diabetes mellitus type 2, left foot ulcer presented to the hospital with a intractable nausea and vomiting found to have 1. Hypotension with a near-syncope likely relative hypotension with a history of hypertension 2. Intractable nausea and vomiting, CT abdomen and pelvis has been ordered has been as GI consultation 3. Dizziness 4. Acute kidney injury suspected secondary to vasomotor nephropathy 5. Diabetes mellitus type 2 with hyperglycemia 6. Left foot ulcer 7. Fungal UTI -add fluconazole for three days -CT abdomen and pelvis reviewed which shows no evidence of any acute pathology, diet as tolerated -discharge plan. Plan discussed with: Patient My Orders Orders - KAREN MIKE MD Procedure Category Date Status Time Electrocardigram EKG 06/14/25 Resulted 01:45 Date of Service: Jun 14, 2025 Billing Provider: KAREN MIKE MD Common Visit Codes: [id number] INP/OBS CARE(HIGH) KAREN MIKE MD Jun 14, 2025 16:42
[2025-06-15] VITALS (7 sets, daily range): BP systolic 123–171; BP diastolic 81–103; PULSE 61–106; RESP 16–18; TEMP 97.7–98.9; O2SAT 92–95
--- NOTE | 2025-06-15 15:28 | DVHDS2 ---
Discharge Summary Date of Admission Jun 07, 2025 at 21:22 Date of Discharge: Jun 15, 2025 Labs/Diagnostic Data: Laboratory Results Test 06/15/25 11:51 06/14/25 08:55 06/14/25 03:49 06/13/25 01:22 POC Glucose 156 mg/dl (70-106) Magnesium Level 1.6 mg/dL (1.6-2.6) White Blood Count 4.6 10^3/uL (4.4-10.8) Red Blood Count 4.34 10^6/uL (4.0-5.20) Hemoglobin 12.2 g/dL (12.2-16.2) Hematocrit 36.3 % (36.0-46.0) Mean Corpuscular Volume 83.7 fL (80.0-100.0) Mean Corpuscular Hemoglobin 28.0 pg (28.0-32.0) Mean Corpuscular Hemoglobin Concent 33.5 g/dL (32.0-36.0) Red Cell Distribution Width 13.7 % (11.8-14.3) Platelet Count 363 10^3/uL (140-450) Mean Platelet Volume 6.1 fL (6.9-10.8) Neutrophils (%) (Auto) 67.0 % (37.0-80.0) Lymphocytes (%) (Auto) 26.7 % (10.0-50.0) Monocytes (%) (Auto) 5.7 % (0.0-12.0) Eosinophils (%) (Auto) 0.2 % (0.0-7.0) Basophils (%) (Auto) 0.4 % (0.0-2.0) Neutrophils # (Auto) 3.1 10 ^3/uL (1.6-8.6) Lymphocytes # (Auto) 1.2 10 ^3/uL (0.4-5.4) Monocytes # (Auto) 0.3 10 ^3/uL (0-1.3) Eosinophils # (Auto) 0 10 ^3/uL (0-0.8) Basophils # (Auto) 0 10 ^3/uL (0-0.2) Nucleated Red Blood Cells 0.1 % Sodium Level 138 mmol/L (136-145) Potassium Level 3.5 mmol/L (3.5-5.1) Chloride Level 106 mmol/L (98-107) Carbon Dioxide Level 20 mmol/L (20-31) Anion Gap 12 (5-15) Blood Urea Nitrogen < 5 mg/dL (9-23) Creatinine 0.92 mg/dL (0.550-1.02) Glomerular Filtration Rate Calc 71 mL/min (>90) BUN/Creatinine Ratio 5.4 (10.0-20.0) Serum Glucose 131 mg/dL (74-106) Calcium Level 8.8 mg/dL (8.7-10.4) Total Bilirubin 0.5 mg/dL (0.2-1.0) Aspartate Amino Transferase (AST) 31 U/L (13-40) Alanine Aminotransferase (ALT) 34 U/L (7-40) Alkaline Phosphatase 76 U/L (46-116) Total Protein 6.6 g/dL (5.7-8.2) Albumin 3.3 g/dL (3.2-4.8) Vancomycin Level Trough 9.5 ug/mL (5-10) Test 06/09/25 06:19 06/08/25 23:53 06/07/25 16:04 06/07/25 15:12 Random Vancomycin Level 10.7 ug/mL (5-10) Urine Creatinine 61.37 mg/dL (30.0-125.0) Urine Sodium 41 mmol/L (40-220) Urine Total Protein 13.4 mg/dL (1-14) Urine Color Yellow (Yellow) Urine Clarity Turbid (Clear) Urine pH 5.0 (5.0-9.0) Urine Specific [place] 1.015 (1.001-1.035) Urine Protein Trace (Negative) Urine Ketones Negative (Negative) Urine Blood 1+ /uL (Negative) Urine Nitrite Negative (Negative) Urine Bilirubin Negative (Negative) Urine Urobilinogen Normal mg/dL (Negative) Urine Leukocyte Esterase 3+ /uL (Negative) Urine RBC 8 /hpf (0 - 4) Urine Microscopic WBC 14 /HPF (0-5) Urine Squamous Epithelial Cells Few /hpf (<5) Urine Bacteria Few /hpf (None Seen) Urine Mucus Few (None Seen) Urine Yeast (Budding) Occasional /hpf (None Urine Glucose 4+ mg/dL (Normal) Troponin I High Sensitivity 4 ng/L (</=34) Test 06/07/25 14:11 Lactic Acid Level 2.6 mmol/L (0.4-2.0) Other Laboratory Tests 06/14/25 03:49 Brief Hx & Hospital Course: 60-year-old female with a known history of diabetes mellitus type 2, left foot ulcer presented to the hospital with a intractable nausea and vomiting found to have near-syncope suspected secondary to relative hypotension with a known history of hypertension. Patient also has a intractable nausea and vomiting CT abdomen and pelvis was done which shows no evidence of any acute pathology. Patient's acute kidney injury has been resolved with the IV hydration. Patient is currently being discharged under stable condition. Patient's has a fungal UTI which was treated with the fluconazole and finish course of antifungal. Condition at Discharge: Stable Final Diagnosis/Problems List 60-year-old female with a known history of diabetes mellitus type 2, left foot ulcer presented to the hospital with a intractable nausea and vomiting found to have 1. Hypotension with a near-syncope likely relative hypotension with a history of hypertension 2. Intractable nausea and vomiting, CT abdomen and pelvis shows no evidence of any acute pathology 3. Dizziness , resolved 4. Acute kidney injury suspected secondary to vasomotor nephropathy 5. Diabetes mellitus type 2 with hyperglycemia 6. Left foot ulcer 7. Fungal UTI Discharge Disposition: Home SNF Discharge Will this Physician continue t: No Discharge Instruct/Medications Diet: Cardiac 2g Na,low cholest Diet comment: 1800 ADA diet Activity: No Restrictions, As Tolerated Follow Up/Referral: Please follow up with the PCP in 1-2 weeks Medications: Resume home medications Continued Medications: Metformin HCl (Metformin Hydrochloride) 1,000 Mg Tab 1000 MG PO BID, TAB Scheduled Metformin HCl (Metformin Hydrochloride), 1,000 MG PO BID, (Reported) Discharge Statement: "Patient was advised to return to the ER or call 911 if any headaches, dizziness, shortness of breath, chest pain, abdominal pain, bleeding, fevers, or worsening of medical condition. Patient was counseled about treatment plan, medications, possible side effects, patientverbalized understanding. All questions were answered to the best of my ability. This discharge took greater then 30 minutes in planning, reviewing documentation, counseling the patient, and discussing with other team members." ASSESSMENT ASSESSMENT Assessment 60-year-old female with a known history of diabetes mellitus type 2, left foot ulcer presented to the hospital with a intractable nausea and vomiting found to have 1. Hypotension with a near-syncope likely relative hypotension with a history of hypertension 2. Intractable nausea and vomiting, CT abdomen and pelvis shows no evidence of any acute pathology 3. Dizziness , resolved 4. Acute kidney injury suspected secondary to vasomotor nephropathy 5. Diabetes mellitus type 2 with hyperglycemia 6. Left foot ulcer 7. Fungal UTI Date of Service: Jun 15, 2025 Billing Provider: KAREN MIKE MD Common Visit Codes: 99500-IKE/OBS DISCH DAY >30min KAREN MIKE MD Jun 15, 2025 15:28
== END 2025-06-15 18:41 | disposition home or self-care (01) | DRG 720 ==
LOC: ER 11:25 → OVERFLOW 21:22 → TELE-WESTW 06-08 02:04
PROVIDERS: ADMIT Internal Medicine; ATTEND Internal Medicine
DX: A41.89 Other specified sepsis (principal); N17.0 Acute kidney failure with tubular necrosis; R65.21 Severe sepsis with septic shock; B49 Unspecified mycosis; N39.0 Urinary tract infection, site not specified; E11.621 Type 2 diabetes mellitus with foot ulcer; E66.01 Morbid (severe) obesity due to excess calories; I10 Essential (primary) hypertension; I95.9 Hypotension, unspecified; E11.65 Type 2 diabetes mellitus with hyperglycemia; E78.5 Hyperlipidemia, unspecified; Z68.41 Body mass index [BMI] 40.0-44.9, adult
CPT/HCPCS: 36415; 73590; 74176; 76775; 80048; 80053; 80202; 81001; 82565; 82570; 82962; 83605; 83735; 84156; 84300; 84484; 85025; 87040; 87086; 87088; 93005; 96361; 96365; 97163; G0378; J0692; J1815; J2405